=== PATIENT | female | born 1945 | race Caucasian/White ===

== ENCOUNTER → 2022-06-30 10:22 | Outpatient (BNVA) | payer OTHER, SELFPAY | PROVIDERS: PCP Family Medicine; Visit Provider Psychiatry & Neurology Neurology | DX: G20 Parkinson's disease (principal) ==

== ENCOUNTER → 2022-09-01 12:24 | Outpatient (BNVA) | payer OTHER, MEDICAID, SELFPAY | PROVIDERS: PCP Family Medicine; Visit Provider Psychiatry & Neurology Neurology | DX: Z13.89 Encounter for screening for other disorder (principal) ==

== ENCOUNTER → 2022-12-16 13:49 | Outpatient (BNVA) | payer OTHER, MEDICAID, SELFPAY | PROVIDERS: PCP Family Medicine; Visit Provider Psychiatry & Neurology Neurology ==

== ENCOUNTER 2023-01-26 16:07 | Outpatient (AMB) | payer OTHER, MEDICAID, SELFPAY ==
--- NOTE | 2023-01-26 16:08 | MHC.OFFVIS ---
Intake Vital Signs 01/26/23 16:11 Height 5 ft 2 in BP 144/70 H Blood Pressure Location Rt brachial Position Sitting Pulse 89 Pulse Source Pulse Oximeter Pulse Oximetry (%) 98 Oxygen Delivery Method Room Air Intake Visit Reasons: Urgent Follow up(per MD) Intake Note: Patient presents for urgent follow up. Patient states medication is not working Allergies atorvastatin [From Lipitor] Allergy (Severe, Verified 01/26/23 16:09) Vomiting clindamycin Allergy (Severe, Verified 01/26/23 16:09) Vomiting Sulfa (Sulfonamide Antibiotics) Allergy (Severe, Verified 01/26/23 16:09) Hives Medication List - Last Reconciled 01/26/23 by Lucina Jerry MD amantadine HCl ER (Gocovri) 1 cap qhs x's 1 week, then 2 caps qhs orally bedtime; 30 days azathioprine (Imuran) 50 mg PO DAILY carbidopa-levodopa 25-100 mg (Sinemet) 2 tabs PO QID 90 days mesalamine (Lialda) 2.4 grams PO DAILY rosuvastatin 5 mg PO DAILY spironolactone 50 mg PO DAILY HPI HPI Comments History of Present Illness Details 77y/o left handed female comes for urgent follow up of Parkinsons disease.she reports increase in tremors and feels she has no control over her hand movements- started 1 week ago.I decreased her sinemet 25/100 1.5 tabs qid and 2 tabs at bedtime .No OFF periods or freezing.she also sprained her back when she was trying to get in her sisters car . About 1 month ago she noticed tremors in her left hand, had difficulty with writing , mouth twitches, difficulty applying make up . she also reports leg jerks at night.she reports difficulty falling asleep, feels restless. she was started on Gocovri and feels better.she stopped pramipexole (not clear why) History-She was diagnosed with parkinsons disease in 2017 in [place]. She presented with right handed tremors at that time.she was started on carbidopa/levodopa and trialed on requip, rasagiline, rytary,neupro patch etc. she moved from [place] to [facility] 2 years ago . She denies any cognitive issues. She reports occasional weird dreams and she has cried out for help.she has 1-2 arousals a night to use the bathroom. she denies anxiety or depression.she is very motivated. she feels her speech is hoarse and softer. she denies drooling. Handwriting is OK . she has difficult with applying make up. she denies any problems with dressing or bathing. she walks OK .she reminds herself to swing her UE. she feels like her knees are weak. she reports constipation. No falls. Denies dizziness, dysphagia. she had hallucinations related to a new BP medication with antibiotic several months ago. she wakes up with jaw tremors that lasts for 1 hr. she also has some lip twitching which she does not like because its embarrassing and unpredictable. 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 Ulcerative colitis Surgical History H/O breast biopsy H/O colonoscopy History of tonsillectomy Hx of carpal tunnel repair Hx of section Status post repair of ligament of ankle Family History Sister Hypertension COPD (chronic obstructive pulmonary disease) Mother Diabetes CAD (coronary artery disease) Hyperlipidemia Father Hyperlipidemia Paternal Grandmother Breast cancer Social History Alcohol intake: current Patient Tobacco Use Status: Former Tobacco user Physical Exam Vital Signs: Last Vital Signs Pulse 89 01/26/23 16:11 BP 144/70 H 01/26/23 16:11 Pulse Ox 98 01/26/23 16:11 Oxygen Delivery Method Room Air 01/26/23 16:11 Const General: cooperative, healthy appearing and no acute distress Nutritional Appearance: average body habitus Orientation/consciousness: patient oriented x3 HEENT Other: restricted range of motion Head: Yes normal to inspection Neck Other: mild antecollis and restricted range of motion Neuro Other: Mild decreased blink and facial expression mild lower lip tremors, tongue tremors , slow tongue movements Voice- hoarse No rest tremors , lower lip tremors Fine Finger movements - mildly decreased deon R>L Alternating hand movements - decreased deon Hand movements - decreased deon Foot taps- decreased deon 2 cog wheel rigidity - Right UE gait - stooped, mild slowness and decreased arm swing L>R General: patient oriented x3 and no focal motor deficits Cranial nerves: Yes CN's II-XII intact bilaterally, Yes Bilaterally intact EOM present, Yes Normal facial strength present and Yes Midline tongue present Motor exam (neuro): 5/5 motor strength present throughout and Normal motor muscle tone present throughout Coordination: [id number] test normal Psych Appearance: grossly normal Affect: Anxious affect present Assessment & Plan Assessment & Plan (1) Parkinson's disease: Comment: with dyskinesias Code(s): G20 - Parkinson's disease (2) Sleep disorder: Comment: insomnia ? REM behavior disorder Code(s): G47.9 - Sleep disorder, unspecified Plan Carbidopa/levodopa 25/100 2 tabs qid 8am -12 noon 4 pm 8 pm Gocovri 137 mg 2 caps qhs I will trial her on clonazepam 0.5mg 1/2 tab qhs Medications: Changed From carbidopa-levodopa 25-100 mg (Sinemet) 8am,12 noon, 4pm, 8 pm 2 tabs PO QID 90 days 720 tabs 6RF To carbidopa-levodopa 25-100 mg (Sinemet) 1.5 tabs qid and 2 tabs qhs 2 tabs PO QID 90 days 720 tabs 6RF From carbidopa-levodopa 25-100 mg (Sinemet) 1.5 tabs qid and 2 tabs qhs 2 tabs PO QID 90 days 720 tabs 6RF To carbidopa-levodopa 25-100 mg (Sinemet) 2 tabs PO QID 720 tabs 6RF 90 days Coding Level of Care Code Est Pt Level 4 (42466) Diagnoses Parkinson's disease G20 Sleep disorder G47.9
[2023-01-26 16:11] VITALS: BP 144/70; PULSE 89; O2SAT 98
== END 2023-01-26 16:29 | disposition home or self-care (01) ==
PROVIDERS: PCP Family Medicine; Visit Provider Psychiatry & Neurology Neurology
DX: G20 Parkinson's disease (principal); G47.9 Sleep disorder, unspecified
CPT/HCPCS: 99214

== ENCOUNTER → 2023-01-26 16:07 | Outpatient (BNVA) | payer OTHER, MEDICAID, SELFPAY | PROVIDERS: PCP Family Medicine; Visit Provider Psychiatry & Neurology Neurology ==

== ENCOUNTER 2025-01-24 10:40 | Outpatient (AMB) | payer OTHER, MEDICAID, SELFPAY ==
--- NOTE | 2025-01-24 10:44 | A.OFFVIS_ITS ---
Vital Signs 01/24/25 10:46 Height 5 ft 2 in Weight 165 lb 4 oz BMI 30.2 BP 110/64 Blood Pressure Location Rt brachial Position Sitting Pulse 70 Pulse Source Pulse Oximeter Pulse Oximetry (%) 96 Oxygen Delivery Method Room Air Intake Visit Reasons: f/u appt - last seen on 2022 Intake Note: Patient presents follow up for Parkinson's Certified Hyperbaric Technologist Required: No Accompanied by: Self / Same As Patient Allergies atorvastatin (From Lipitor) Allergy (Severe, Verified 01/26/23 16:09) Vomiting clindamycin Allergy (Severe, Verified 01/26/23 16:09) Vomiting Sulfa (Sulfonamide Antibiotics) Allergy (Severe, Verified 01/26/23 16:09) Hives Medication List - Last Reconciled 01/24/25 by Lucina Jerry MD amantadine HCl ER (Gocovri) 1 cap qhs x's 1 week, then 2 caps qhs orally bedtime; 30 days azathioprine (Imuran) 50 mg PO DAILY azathioprine 50 mg PO DAILY carbidopa-levodopa 25-100 mg (Sinemet) 2 tabs PO QID 90 days cholecalciferol (vitamin D3) 25 mcg PO DAILY estradiol 1 mg PO DAILY losartan 25 mg PO DAILY mesalamine (Lialda) 2.4 grams PO DAILY mirabegron ER 25 mg PO DAILY primidone 50 mg PO BID propranolol 20 mg PO TID rosuvastatin 5 mg PO DAILY spironolactone 50 mg PO DAILY HPI Comments Details: 79y/o left handed female comes for follow up of tremors Parkinsons disease after 2 years .she was seeing the Movement Disorders clinic at [facility].But due to insurance change she is changing providers. she had skin biopsy there that was negative for parkinsons.she was trialed on propranalol and primidone by Dr. House , botox for facial muscles did not help. Memory- good Sleep- hypersomnia , no vivid dreams , abnormal leg jerks when supine. Voice- weaker she has some drooling has trouble with utensils Dressing , shower- Ok slow gait-slow , no falls No hallucinations History form 2022 visit- she reports increase in tremors and feels she has no control over her hand movements- started 1 week ago.I decreased her sinemet 25/100 1.5 tabs qid and 2 tabs at bedtime .No OFF periods or freezing.she also sprained her back when she was trying to get in her sisters car . About 1 month ago she noticed tremors in her left hand, had difficulty with writing , mouth twitches, difficulty applying make up . she also reports leg jerks at night.she reports difficulty falling asleep, feels restless. she was started on Gocovri and feels better.she stopped pramipexole (not clear why) She was diagnosed with parkinsons disease in 2017 in [place]. She presented with right handed tremors at that time.she was started on carbidopa/levodopa and trialed on requip, rasagiline, rytary,neupro patch etc. she moved from [place] to [facility] 2 years ago . She denies any cognitive issues. She reports occasional weird dreams and she has cried out for help.she has 1-2 arousals a night to use the bathroom. she denies anxiety or depression.she is very motivated. she feels her speech is hoarse and softer. she denies drooling. Handwriting is OK . she has difficult with applying make up. she denies any problems with dressing or bathing. she walks OK .she reminds herself to swing her UE. she feels like her knees are weak. she reports constipation. No falls. Denies dizziness, dysphagia. she had hallucinations related to a new BP medication with antibiotic several months ago. she wakes up with jaw tremors that lasts for 1 hr. she also has some lip twitching which she does not like because its embarrassing and unpredictable. 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 Ulcerative colitis HTN (hypertension) Surgical History Status post repair of ligament of ankle History of tonsillectomy H/O colonoscopy Hx of carpal tunnel repair Hx of section H/O breast biopsy Family History Sister Hypertension COPD (chronic obstructive pulmonary disease) Mother Diabetes CAD (coronary artery disease) Hyperlipidemia Father Hyperlipidemia Paternal Grandmother Breast cancer Social History Alcohol intake: current Patient Tobacco Use Status: Former Tobacco user Physical Exam Vital Signs: Last Vital Signs Pulse 70 01/24/25 10:46 BP 110/64 01/24/25 10:46 Pulse Ox 96 01/24/25 10:46 Oxygen Delivery Method Room Air 01/24/25 10:46 BMI result Body Mass Index 30.2 Const General: cooperative, healthy appearing and no acute distress Nutritional Appearance: average body habitus Orientation/consciousness: patient oriented x3 HEENT Other: restricted range of motion Head: Yes normal to inspection Neck Other: mild antecollis and restricted range of motion Neuro Other: Mild decreased blink and facial expression mild lower lip tremors, tongue tremors , slow tongue movements Voice- hoarse No rest tremors , lower lip tremors Fine Finger movements - moderately decreased deon R>L Alternating hand movements - decreased deon Hand movements - decreased deon Foot taps- decreased deon 2 cog wheel rigidity - Right UE gait - stooped, mild slowness andno arm swing on the right General: patient oriented x3 and no focal motor deficits Cranial nerves: Yes CN's II-XII intact bilaterally, Yes Bilaterally intact EOM present, Yes Normal facial strength present and Yes Midline tongue present Motor exam (neuro): 5/5 motor strength present throughout and Normal motor muscle tone present throughout Coordination: [id number] test normal Psych Appearance: grossly normal Affect: Anxious affect present Assessment & Plan Assessment & Plan (1) Parkinson's disease: Comment: with dyskinesias Code(s): G20 - Parkinson's disease Category: Medical Qualifiers: Dyskinesia presence: without dyskinesia Fluctuating manifestations: without fluctuating manifestations Qualified Code(s): G20.A1 - Parkinson's disease without dyskinesia, without mention of fluctuations (2) Sleep disorder: Comment: insomnia ? REM behavior disorder Code(s): G47.9 - Sleep disorder, unspecified Category: Medical (3) Essential and other specified forms of tremor: Code(s): G25.0 - Essential tremor; G25.2 - Other specified forms of tremor Category: Medical Plan Increase Carbidopa/levodopa 25/100 2 tabs qid 8am -12 noon 4 pm 8 pm primidone 50mg bid Propranolol 20mg tid Medications: Changed From carbidopa-levodopa 25-100 mg (Sinemet) 2 tabs PO QID 90 days 720 tabs 6RF To carbidopa-levodopa 25-100 mg (Sinemet) 1.5 tabs PO QID 90 days 540 tabs 6RF From carbidopa-levodopa 25-100 mg (Sinemet) 1.5 tabs PO QID 90 days 540 tabs 6RF To carbidopa-levodopa 25-100 mg (Sinemet) 2 tabs PO QID 720 tabs 6RF 90 days Discontinued clonazepam administer 30 minutes before bedtime Discontinued Reason: Patient no longer taking 0.25 mg (1/2 x 0.5 mg) PO BEDTIME 30 tabs 2RF clonazepam administer 30 minutes before bedtime Discontinued Reason: Patient no longer taking 0.25 mg (1/2 x 0.5 mg) PO BEDTIME 30 tabs 2RF Coding Level of Care Code Est Pt Level 4 (14130) Complex EM visit Add On G2211 Diagnoses Parkinson's disease without dyskinesia or fluctuating manifestations G20.A1 Dyskinesia presence: without dyskinesia Fluctuating manifestations: without fluctuating manifestations Sleep disorder G47.9 Essential and other specified forms of tremor G25.0; G25.2
[2025-01-24 10:46] VITALS: BP 110/64; PULSE 70; O2SAT 96; BMI 30.2
--- OUTSIDE RECORDS SUMMARY | 2025-01-24 11:20 | XMS_ITS | Encounter Summary ---
Author Organization [facility] Address [address] [place] [address] Care Team Providers Care Cloth Covered Helmet Puller Name Role Phone Rosario Palacio MD Primary Care Provider Encounter Details Date Type Department Care Team (Late st Contact Info) Description 04/06/2023 Scanned Document [facility] [place] [address] [facility] [address] [place] [phone] Cortney Kaur, PUTTY AND CAULKING SUPERVISOR [address] [facility] [address] [place] [address] Social History Tobacco Use Types Packs/Day Years Used Date Smoking Tobacco: Former Cigarettes Q uit: 06/20/1979 Smokeless Tobacco: Never Comments:quit at 36 y/o Alcohol Use Standard Drinks/Week Comments Not Currently 1 (1 standard drink = 0.6 oz pur e alcohol) occasional Comments No Sex and Gender Information Value Date Recorded Sex Assigned at Not on file Legal Sex Female 8:26 AM EST Gender Identity Not on file Sexual Orientation Not on file documented as of this encounter Plan of Treatment Not on file documented as of this encounter Visit Diagnoses Not on filedocumented in this encounter Care Teams Cloth Covered Helmet Puller Relationship Specialty Start Date End Date Rosario Palacio MD [address] [facility] [place] [address] PCP - General Family Medicine 03/10/23 documented as of this encounter
--- OUTSIDE RECORDS SUMMARY | 2025-01-24 11:20 | XMS_ITS ---
Author Name [facility] Organization Unknown History of Medication Use Medication Directions Dispensed Refills Start Date End Date Stat gabapentin (NEURONTIN) 100 MG capsule Take 1 capsule (100 mg total) by mouth 2 times a day. 12/29/2023 active primidone (MYSOLINE) 50 MG tablet Take 1/2 tablet nightly for a week and the increase to 1 full tablet nightly. 12/27/2023 active propranolol (INDERAL) 10 MG tablet Take 4 tablets (40 mg total) by mouth 2 (two) times a day. Take 2 tabs twice weekly for a week, then 3 tabs twice daily for a week, then 4 tabs twice daily 11/24/2023 11/24/2023 active propranolol (INDERAL) 10 MG tablet Take 2 tablets (20 mg total) by mouth 2 (two) times a day. To take 10mg twice daily for 1 week then increase to 20mg twice daily 11/16/2023 11/24/2023 active carbidopa-levodopa (SINEMET) 25-100 MG per tablet Take 1 tablet by mouth 3 (three) times a day. 08/24/2023 10/17/2023 active carbidopa-levodopa ER (RYTARY) 61.25-245 MG per capsule Take 1 capsule by mouth 3 (three) times a day. 07/13/2023 07/29/2023 active Gocovri 137 MG 24 hr capsule Take 2 capsules (274 mg total) by mouth nightly. 02/01/2023 03/10/2023 active Gocovri 137 MG 24 hr capsule 12/21/2022 02/01/2023 aborted amantadine (SYMMETREL) 100 MG capsule Take 1 capsule (100 mg total) by mouth 3 (three) times a day. 02/23/2022 02/01/2023 aborted carbidopa-levodopa (SINEMET) 25-100 MG per tablet Take 2 tablets by mouth 4 (four) times a day. May take an additional half tablet in the middle of the night if needed 12/07/2021 03/21/2023 aborted pramipexole (miraPEx) 0.125 MG tablet TAKE 2 TABLETS BY MOUTH 3 TIMES A DAY 12/07/2021 02/01/2023 aborted mesalamine (LIALDA) 1.[address] tablet Take 2 tablets (2.4 g total) by mouth 2 (two) times a day. 11/24/2023 active Allergies Allergen Reaction Severity Comment Documented Date Source Statu s SULFA ANTIBIOTICS UNKNOWN/PATIENT AND FAMILY UNABLE TO DEFINE 08/18/2020 [facility] active CLINDAMYCIN UNKNOWN/PATIENT AND FAMILY UNABLE TO DEFINE [facility] Problems Problem Status Onset Date Problem Type Date of Resoluti on Source Parkinson's disease with dyskinesia and fluctuating manifestations active 2023-11-24 [facility]Act [facility] Kinetic tremor active 2023-11-[address] [facility] Encounters Encounter Type Encounter Reason Primary Diagnosis Location Date Ambulatory Other specified forms of tremor Other specified forms of tremor [facility] 11/24/2023 Ambulatory Parkinson's disease without dyskinesia, without mention of fluctuations Parkinson's disease without dyskinesia, without mention of fluctuations [facility] 09/20/2023 Ambulatory Parkinson's disease with dyskinesia, with fluctuations Parkinson's disease with dyskinesia, with fluctuations [facility] 08/24/2023 Ambulatory Parkinson's disease with dyskinesia, with fluctuations Parkinson's disease with dyskinesia, with fluctuations [facility] 07/13/2023 Ambulatory Parkinson's disease Parkinson's disease [facility] 03/10/2023 Ambulatory Parkinson's disease Parkinson's disease [facility] 02/01/2023 Ambulatory Parkinson's disease [facility] 12/07/2021 Ambulatory Parkinson's disease [facility] 09/08/2021 Ambulatory Parkinson's disease [facility] 05/06/2021 Care Team Organization Name Specialty Phone Email Start Date End Da carissa [facility] ESTELLE HAMPTON Primary Care 03/10/2023 07/13/19 [facility] TONNY NAGEL Primary Care 12/07/2021 09/05/2024 [facility] SAM NAGEL Primary Care 05/06/2021 12/07/2021
--- OUTSIDE RECORDS SUMMARY | 2025-01-24 11:20 | XMS_ITS | Clinical Summary ---
Author Organization [facility] Address [address] [place] [address] Care Team Providers Care Hod Carrier Name Role Phone Rocky De Souza MD Primary Care Provider [phone] Allergies Active Allergy Reactions Criticality Noted Date Comments Clindamycin 03/30/2024 Sulfa Antibiotics 03/30/2024 Medications Medication Sig Dispensed Refills Start Date End Date Status azaTHIOprine (IMURAN) 50 MG tablet Take 3 tablets (150 mg total) by mouth daily. 0 01/11/2024 Active diazePAM (VALIUM) 2 MG tablet Take 1 tablet (2 mg total) by mouth 2 (two) times a day. 0 03/07/2024 Active gabapentin (NEURONTIN) 100 MG capsule Take 1 capsule (100 mg total) by mouth 2 (two) times a day. 0 12/29/2023 Active predniSONE (DELTASONE) tablet 10 mg TAKE 4 TABS DAILY X3 DAYS, 3 TABS DAILY X7 DAYS, 2 TABS DAILY X7 DAYS, 1 TAB DAILY GI FOLLOW UP 0 02/07/2024 Active spironolactone (ALDACTONE) tablet 25 mg Take 1 tablet (25 mg total) by mouth daily. 0 09/25/2021 Active rosuvastatin (CRESTOR) tablet 5 mg 0 09/20/2023 Active Active Problems Problem Noted Date Diagnosed Date Leucocytosis 03/30/2024 Thrombocytosis 03/30/2024 Ulcerative proctitis without complication 2023 Social History Tobacco Use Types Packs/Day Years Used Date Smoking Tobacco: Former Cigarettes Smokeless Tobacco: Never Tobacco Cessation:Counseling Given: Not Answered Alcohol Use Standard Drinks/Week Comments Not Currently 0 (1 standard drink = 0.6 oz pur e alcohol) Sex and Gender Information Value Date Recorded Sex Assigned at Female 03/12/2024 4:43 PM EDT Gender Identity Not on file Sexual Orientation Not on file Job Start Date Occupation Industry Not on file Not on file Not on file Last Filed Vital Signs Vital Sign Reading Time Taken Comments Blood Pressure 146/92 03/30/2024 1:04 PM EDT Pulse 97 03/30/2024 1:04 PM EDT Temperature 37.1 C (98.7 F) 03/30/2024 1:04 PM EDT Respiratory Rate - - Oxygen Saturation 97% 03/30/2024 1:04 PM EDT Inhaled Oxygen Concentration - - Weight 67 kg (147 lb 12.8 oz) 03/30/2024 1:04 PM EDT Height 157.5 cm (5' 2 ) 03/30/2024 1:04 PM EDT Body Mass Index 27.03 03/30/2024 1:04 PM EDT Plan of Treatment Health Maintenance Due Date Last Done Comments Hepatitis C Screening 1945 Depression Screening 1959 Preventative Health Evaluation 11/12/1965 Fall Risk Assessment 11/12/2012 Osteoporosis Screening (DEXA Scan) 11/12/2012 Hepatitis B Vaccines (3 of 3 - 19+ 3-dose series) 02/28/2013 09/28/2012, 08/28/2012 COVID-19 Vaccine (3 - Pfizer risk series) 09/09/2020 08/12/2020, 07/23/2020 Shingrix-Zoster Vaccine (2 o f 2) 06/04/2021 04/09/2021 RSV Adult > 60+ Yrs or (1 - 1-dose 75+ series) 11/12/2022 Influenza Vaccine (#1) 2025 , 03/19/2022, 03/25/2021 DTap / Tdap / Td (3 - Td or Tdap) 08/25/2031 08/24/2021, 12/09/2008 Pneumococcal Vaccine Completed 08/24/2021, 12/01/2017 RSV Ped < 20 months Aged Out No longe r eligible based on patient's age to complete this topic Care Teams Hod Carrier Relationship Specialty Start Date End Date Rocky De Souza MD PCP - General Rheumatology 03/30/24
--- OUTSIDE RECORDS SUMMARY | 2025-01-24 11:20 | XMS_ITS | Encounter Summary ---
Author Organization [facility] Address [address] [place] [address] Care Team Providers Care Insurance Claims Examiner Name Role Phone Jamie Lugo NP Primary Care Provider [phone] Encounter Details Date Type Department Care Team (Late st Contact Info) Description 07/20/2024 Lab Requisition [facility] - Main Lab [address] [place] [phone] Jamie uLgo NP [address] [address] Essential (primary) hypertension Social History Tobacco Use Types Packs/Day Years Used Date Smoking Tobacco: Former Cigarettes 1 16 0 06/20/1965 - 06/20/1981 Smokeless Tobacco: Never Alcohol Use Standard Drinks/Week Comments Not Currently 0 (1 standard drink = 0.6 oz pur e alcohol) Comments Unknown Sex and Gender Information Value Date Recorded Sex Assigned at Not on file Legal Sex Female 1:01 AM EST Gender Identity Not on file Sexual Orientation Not on file documented as of this encounter Plan of Treatment Upcoming Encounters Date Type Department Care Team (Late st Contact Info) Description 01/30/2025 11:00 AM EDT PACE Assessment [facility] Physical Therapy [address] [place] [address] Aris Chatterjee PT 01/30/2025 12:30 PM EDT PACE Home Care / PACE Home Visit Vianey [facility] [address] [place] [address] Chuyita Jerry 01/31/2025 11:00 AM EDT Office Visit [facility] [address] [place] [address] Karla Ghotra MD [address] [place] [address] 02/06/2025 12:30 PM EDT PACE Home Care / P[facility] Home Visit Vianey LEGER [facility] [address] [place] [phone] Chuyita Jerry 02/13/2025 12:30 PM EDT PACE Home Care / PACE Home Visit Vianey LEGER [facility] [address] [place] [phone] Chuyita Jerry 02/19/2025 1:40 PM EDT Clinical Support Vianey LEGER [place] [address] [place] [address] 02/20/2025 12:30 PM EDT PACE Home Care / PACE Home Visit Vianey LEGER [place] [facility] [address] [place] [phone] Chuyita Jerry 02/21/2025 9:40 AM EDT Clinical Support Vianey LEGER [place] [address] [place] [address] 02/21/2025 10:30 AM EDT Clinical Support Vianey LEGER [place] [address] [place] [address] 02/27/2025 12:30 PM EDT PACE Home Care / PACE Home Visit Vianey LEGER [facility] [address] [place] [address] Chuyita Jerry 03/06/2025 12:30 PM EDT PACE Home Care / PACE Home Visit Vianey LEGER [place] [facility] [address] [place] [address] Chuyita Jerry 03/13/2025 12:30 PM EDT PACE Home Care / PACE Home Visit Vianey LEGER [facility] [address] [facility] [place] [address] Chuyita Jerry 03/20/2025 12:30 PM EDT PACE Home Care / PACE Home Visit Vianey LEGER [facility] [address] [facility] [place] [address] Chuyita Jerry 04/02/2025 1:30 PM EDT Clinical Support Vianey LEGER [place] [address] [facility] [place] [address] 05/02/2025 1:30 PM EST Clinical Support Vianey Nelson [facility] [place] [address] 05/21/2025 3:00 PM EST Clinical Support Vianey LEGER [place] [address] [facility] [place] [address] 07/26/2025 12:45 PM EST Clinical Support Vianey LEGER [place] [address] [facility] [place] [address] documented as of this encounter Procedures Procedure Name Priority Date/Time Associated Diagnosis Comments CBC WITH AUTO DIFFERENTIAL Routine 07/20/2024 11:27 AM EST Essential (primary) hypertension CBC AND DIFFERENTIAL Routine 07/20/2024 11:27 AM EST Essential (primary) hypertension B-TYPE NATRIURETIC PEPTIDE Routine 07/20/2024 11:27 AM EST Essential (primary) hypertension COMPREHENSIVE METABOLIC PANEL Routine 07/20/2024 11:27 AM EST Essential (primary) hypertension documented in this encounter Results * (ABNORMAL) CBC auto differential (07/20/2024 11:27 AM EST) [facility] WBC 5.8 4.8 - 10.8 K/[facility] LAB HEMETOLOGY METHOD 07/20/2024 2:28 PM [facility] RBC 4.20 3.80 - 4.80 M/mcL LAB HEMETOLOGY METHOD 07/20/2024 2:28 PM [facility] Hemoglobin 13.8 11.5 - 16.0 g/dL LAB HEMETOLOGY METHOD 07/20/2024 2:28 PM [facility] Hematocrit 42.6 35.0 - 47.0 % LAB HEMETOLOGY METHOD 07/20/2024 2:28 PM [facility] MCV 100.5(H) 79.0 - 98.0 FL LAB HEMETOLOGY METHOD 07/20/2024 2:28 PM [facility] MCH 32.5(H) 27.0 - 32.0 pcg LAB HEMETOLOGY METHOD 07/20/2024 2:28 PM [facility] MCHC 32.4 32.0 - 37.0 g/dL LAB HEMETOLOGY METHOD 07/20/2024 2:28 PM [facility] RDW 14.8 11.0 - 15.0 % LAB HEMETOLOGY METHOD 07/20/2024 2:28 PM [facility] Platelets 288 130 - 400 K/mcL LAB HEMETOLOGY METHOD 07/20/2024 2:28 PM [facility] MPV 11.4(H) 7.0 - 11.0 FL LAB HEMETOLOGY METHOD 07/20/2024 2:28 PM [facility] NRBC 0.0 <1.0 % LAB HEMETOLOGY METHOD 07/20/2024 2:28 PM [facility] NRBC Absolute 0.00 <0.10 K/mcL LAB HEMETOLOGY METHOD 07/20/2024 2:28 PM [facility] Neutrophils Relative 57.8 % LAB HEMETOLOGY METHOD 07/20/2024 2:28 PM [facility] Lymphocytes Relative 19.9 % LAB HEMETOLOGY METHOD 07/20/2024 2:28 PM [facility] Monocytes Relative 15.8 % LAB HEMETOLOGY METHOD 07/20/2024 2:28 PM [facility] Eosinophils Relative 5.2 % LAB HEMETOLOGY METHOD 07/20/2024 2:28 PM [facility] Basophils Relative 1.0 % LAB HEMETOLOGY METHOD 07/20/2024 2:28 PM [facility] Immature Granulocytes Relative 0.3 % LAB HEMETOLOGY METHOD 07/20/2024 2:28 PM [facility] Neutrophils Absolute 3.33 1.50 - 7.00 K/mcL LAB HEMETOLOGY METHOD 07/20/2024 2:28 PM [facility] Lymphocytes Absolute 1.15 1.00 - 5.00 K/mcL LAB HEMETOLOGY METHOD 07/20/2024 2:28 PM [facility] Monocytes Absolute 0.91 0.20 - 1.00 K/mcL LAB HEMETOLOGY METHOD 07/20/2024 2:28 PM [facility] Eosinophils Absolute 0.30 0.00 - 0.50 K/mcL LAB HEMETOLOGY METHOD 07/20/2024 2:28 PM [facility] Basophils Absolute 0.06 0.00 - 0.20 K/mcL LAB HEMETOLOGY METHOD 07/20/2024 2:28 PM [facility] Immature Granulocytes Absolute 0.02 0.00 - 0.03 K/mcL LAB HEMETOLOGY METHOD 07/20/2024 2:28 PM [facility] Blood Venous blood specimen / Unknown 07/20/2024 11:27 AM EST 07/20/2024 1:56 PM EST Jamie Lugo INJECTION MOLDING OPERATOR LAB BLOOD ORDERABLES Final Resul t [facility] [address] [place] [address], * Comprehensive metabolic panel (07/20/2024 11:27 AM EST) Sodium 137 133 - 145 mmol/L LAB CHEMISTRY METHOD 07/20/2024 2:28 PM EST [facility] Potassium 4.3 3.5 - 5.5 mmol/L LAB CHEMISTRY METHOD 07/20/2024 2:28 PM [facility] Chloride 104 96 - 110 mmol/L LAB CHEMISTRY METHOD 07/20/2024 2:28 PM [facility] CO2 30 21 - 32 mmol/L LAB CHEMISTRY METHOD 07/20/2024 2:28 PM [facility] Anion Gap 3 3 - 11 LAB CHEMISTRY METHOD 07/20/2024 2:28 PM [facility] Glucose 94 70 - 100 mg/dL LAB CHEMISTRY METHOD 07/20/2024 2:28 PM [facility] BUN 14 5 - 25 mg/dL LAB CHEMISTRY METHOD 07/20/2024 2:28 PM [facility] Creatinine 0.71 0.50 - 1.10 mg/dL LAB CHEMISTRY METHOD 07/20/2024 2:28 PM [facility] eGFR 88 >=60 mL/min/1. 73m2 LAB CHEMISTRY METHOD 07/20/2024 2:28 PM [facility] Comment:Calculation based on the Chronic Kidney Disease Epidemiology Collaboration (CKD-EPI) equation refit without adjustment for race. BUN/Creatinine Ratio 19.7 LAB CHEMISTRY METHOD 07/20/2024 2:28 PM [facility] Calcium 9.7 8.5 - 10.5 mg/dL LAB CHEMISTRY METHOD 07/20/2024 2:28 PM [facility] AST (SGOT) 26 10 - 42 unit/L LAB CHEMISTRY METHOD 07/20/2024 2:28 PM [facility] ALT (SGPT) 20 10 - 60 unit/L LAB CHEMISTRY METHOD 07/20/2024 2:28 PM [facility] Alkaline Phosphatase 95 42 - 121 unit/L LAB CHEMISTRY METHOD 07/20/2024 2:28 PM [facility] Total Protein 7.3 6.0 - 8.0 g/dL LAB CHEMISTRY METHOD 07/20/2024 2:28 PM [facility] Albumin 3.7 3.2 - 5.0 g/dL LAB CHEMISTRY METHOD 07/20/2024 2:28 PM [facility] Total Bilirubin 0.5 0.0 - 1.4 mg/dL LAB CHEMISTRY METHOD 07/20/2024 2:28 PM [facility] Blood Venous blood specimen / Unknown 07/20/2024 11:27 AM EST 07/20/2024 1:56 PM EST us Jamie Lugo NP LAB BLOOD ORDERABLES Final Resul t [facility] [address] [place] [address], [place] [phone] * B-type natriuretic peptide (07/20/2024 11:27 AM EST) BNP 75 <=100 pcg/mL LAB CHEMISTRY METHOD 07/20/2024 2:49 PM EST [facility] Blood Venous blood specimen / Unknown 07/20/2024 11:27 AM EST 07/20/2024 1:56 PM EST us Jamie Lugo INJECTION MOLDING OPERATOR LAB BLOOD ORDERABLES Final Resul t [facility] [address] [place] [address], [place] [phone] documented in this encounter Visit Diagnoses Diagnosis Essential (primary) hypertension Unspecified essential hypertension documented in this encounter Care Teams Insurance Claims Examiner Relationship Specialty Start Date End Date Jamie Lugo NP [address] [place] [address] PCP - General 04/25/24 documented as of this encounter
== END 2025-01-24 11:40 | disposition home or self-care (01) ==
PROVIDERS: PCP Family Medicine; Visit Provider Psychiatry & Neurology Neurology
DX: G20.A1 Parkinson's disease without dyskinesia, without mention of fluctuations (principal); G47.9 Sleep disorder, unspecified; G25.0 Essential tremor; G25.2 Other specified forms of tremor
CPT/HCPCS: 99214; G2211

== ENCOUNTER → 2025-01-24 10:40 | Outpatient (BNVA) | payer OTHER, SELFPAY | PROVIDERS: PCP Family Medicine; Visit Provider Psychiatry & Neurology Neurology | DX: G20.A1 Parkinson's disease without dyskinesia, without mention of fluctuations (principal); G47.9 Sleep disorder, unspecified; G25.0 Essential tremor; G25.2 Other specified forms of tremor | CPT/HCPCS: 99212 ==

== ENCOUNTER 2025-03-26 10:31 | Outpatient (AMB) | payer OTHER, MEDICAID, SELFPAY ==
--- OUTSIDE RECORDS SUMMARY | 2024-04-12 11:03 | XMS_ITS | Encounter Summary ---
Author Organization [facility] Address [address] [place] [address] Care Team Providers Care Spraying Machine Operator Name Role Phone Rocky De Souza MD Primary Care Provider [phone] Encounter Details Date Type Department Care Team (Late st Contact Info) Description 04/12/2024 11:03 AM EDT Hospital Encounter TH HISTORIC ENCOUNTERS EASTERN CONVERSION ONLY Jamie Lugo, TENZIN [address] [facility] [address] [place] [address] Encounter for screening for respiratory tuberculosis Social History Tobacco Use Types Packs/Day Years Used Date Smoking Tobacco: Former Cigarettes 1 16 0 06/20/1965 - 06/20/1981 Smokeless Tobacco: Never Comments:Ex-smoker Farhad gill orts she has not smoked in 42 years. Alcohol Use Standard Drinks/Week Comments Not Currently 0 (1 standard drink = 0.6 oz pure alcohol) How often do you have a drink containing alcohol? Never Comments Unknown Sex and Gender Information Value Date Recorded Sex Assigned at Not on file Legal Sex Female 1:01 AM EST Gender Identity Not on file Sexual Orientation Not on file documented as of this encounter Functional Status * Geriatric Depression Scale (Short Version) Question Answer Date of Assessment Author Are you basically satisfied with your life? Yes 02/01/2025 12:30 PM EDT Dominique Finley Have you dropped many of you r activities and interests? Yes 02/01/2025 12:30 PM EDT Sudha Finley Do you feel that your life is empty? No 01/18 12:30 PM EDT Dominique Finley Do you often get bored? No 02/01/2025 12:30 PM EDT Dominique Finley Are you in good spirits most of the time? Yes 02/01/2025 12:30 PM EDT Dominique Finley Are you afraid that somethin g bad is going to happen to you? No 02/01/2025 12:30 PM EDT Gonzales Finley Do you feel happy most of the time? Yes 02/01 12:30 PM EDT Dominique Finley Do you often feel helpless? No 02/01/2025 12 :30 PM EDT Dominique Finley Do you prefer to stay at [facility], rather than going out and doing new things? No 02/01/2025 12:30 PM EDT Dominique Finley Do you feel you have more pr oblems with memory than most? No 02/01/2025 12:30 PM RODNEYT Dominique Finley Do you think it is wonderful to be alive now? Yes 02/01/2025 12:30 PM RODNEYT Dominique Finley Do you feel pretty worthless the way you are now? Yes 02/01/2025 12:30 PM Dominique Ruth Do you feel full of energy? No 02/01/2025 12 :30 PM Dominique Ruth Do you feel that your situat ion is hopeless? No 02/01/2025 12:30 PM EDT Dominique Finley Do you think that most peopl e are better off than you are? No 02/01/2025 12:30 PM RODNEYT Francisco Finley Geriatric Depression Scale ( Short Version) Total 3 02/01/2025 12:30 PM RODNEYT Dominique Finley documented as of this encounter Plan of Treatment Upcoming Encounters Date Type Department Care Team (Late st Contact Info) Description 03/27/2025 12:30 PM EDT [facility] Natalialinda ARSEN RUIZ [facility] [address] [place] [phone] Chuyita Jerry 03/29/2025 Lab V[facility]ey [facility]GER [facility] [address] [place] [phone] Jamie Lugo, TENZIN [address] [address] Urinary urgency; Urinary frequency 04/03/2025 12:30 PM EDT [facility] Home Visit Vianey LEGER MA [facility] [address] [place] [phone] Chuyita Jerry 04/10/2025 12:30 PM EDT [facility] Home Visit Vianey LEGER MA [facility] [address] [place] [phone] Chuyita Jerry 04/17/2025 2:30 PM EDT [facility] Home Visit Vianey LEGER MA [facility] [address] [place] [phone] Karen Myrick 04/24/2025 12:30 PM EST [facility] Home Visit Vianey LEGER [facility] [address] [place] [phone] Chuyita Jerry 05/01/2025 12:30 PM EST [facility] Home Visit Vianey LEGER [facility] [address] [place] [phone] Chuyita Jerry 05/02/2025 1:30 PM EST Clinical Support Vianey LEGER MA [address] [place] [phone] 05/08/2025 3:30 PM EST Ancillary Procedure [facility] [place] [facility] [address] [facility] [address] [place] [address] 05/09/2025 11:00 AM EST Clinical Support Vianey LEGER MA [address] [place] [phone] 05/15/2025 12:30 PM EST [facility] Home Visit Viaeny LEGER MA [facility] [address] [place] [phone] Chuyita Jerry 05/21/2025 3:00 PM EST Clinical Support Vianey LEGER MA [address] [place] [phone] 05/22/2025 12:30 PM EST [facility] Visit Vianey LEGER [facility] [address] [place] [phone] Chuyita Jerry 07/26/2025 12:45 PM EST Clinical Support Vianey LEGER MA [address] [place] [phone] 09/02/2025 1:00 PM EDT Clinical Support Vianey LEGER MA [address] [place] [phone] documented as of this encounter Procedures Procedure Name Priority Date/Time Associated Diagnosis Comments CHEST ROUTINE 2 VIEWS Routine 04/12/2024 12:20 PM EDT Encounter for screening for respiratory tuberculosis documented in this encounter Results * CHEST ROUTINE 2 VIEWS (04/12/2024 12:20 PM EDT) Anatomical Region Laterality Modality Radiographic Ania ging 04/12/2024 11:0 9 AM EDT Narrative 04/12/2024 12:20 PM EDT [facility] Diagnostic Imaging Department [address] [place] [address] [phone] Patient: FARHAD BURT D.O.B./Age/Sex: 1945 - 78 - F Unit#: [id number] Location/Status: SPDIGEN/REG CLI Mnemonic/Ordering Site: CHESTXR/SPDI Ordering Physician: JAMIE LUGO RN, CNP DR Chest Routine 2 Views - 04/12/24 - 1126 Report Status:Signed PA and lateral views of the chest dated 04/12/2024. HISTORY: CHEST XRAY TO RULE OUT TUBERCULOSIS. COMPARISON: 12/15/2023. FINDINGS: The lungs are slightly hyperinflated but clear. No pleural effusion, pulmonary edema, or pneumothorax. Normal heart size. Mild degenerative changes of the spine. IMPRESSION: Normal radiographic appearance of the chest for patient age. No findings to suggest pulmonary tuberculosis. Dictating Physician: SALO CHEATHAM MD Electronically Signed by: SALO CHEATHAM MD Dic Date/Time: 04/12/24 1219 Sign date/Time: 04/12/24 1220 Procedure Note Salo Cheatham MD - 04/21/2024 [facility] Diagnostic Imaging Department [address] [place], [place] [phone] Patient: CARMELFARHAD D.O.B./Age/Sex: 1945 - 78 - F Unit#: [id number] Location/Status: SPDIGEN/REG CLI Mnemonic/Ordering Site: CHESTXR/SPDI Ordering Physician: JAMIE LUGO RN COURT RECORDER DR Chest Routine 2 Views - 04/12/24 - 1126 Report Status:Signed PA and lateral views of the chest dated 04/12/2024. HISTORY: CHEST XRAY TO RULE OUT TUBERCULOSIS. COMPARISON: 12/15/2023. FINDINGS: The lungs are slightly hyperinflated but clear. No pleural effusion,pulmonary edema, or pneumothorax. Normal heart size. Mild degenerative changes ofthe spine. IMPRESSION: Normal radiographic appearance of the chest for patient age. No findingsto suggest pulmonary tuberculosis. Dictating Physician: SALO CHEATHAM MD Electronically Signed by: SALO CHEATHAM MD Dic Date/Time: 04/12/24 1219 Sign date/Time: 04/12/24 1220 Jamei Lugo CHEMIC MANGLER IMG XR PROCEDURES Final Result documented in this encounter Visit Diagnoses Diagnosis Encounter for screening for respiratory tuberculosis Urinary urgency Urgency of urination Urinary frequency documented in this encounter Care Teams Spraying Machine Operator Relationship Specialty Start Date End Date Rocky De Souza MD [address] [address] PCP - General 03/12/24 04/24/24 documented as of this encounter
--- OUTSIDE RECORDS SUMMARY | 2025-03-20 12:30 | XMS_ITS | Encounter Summary ---
Author Organization [facility] Address [address] [place] [address] Care Team Providers Care Classification Case Manager Name Role Phone Jamie Lguo NP Primary Care Provider [phone] Encounter Details Date Type Department Care Team (Late st Contact Info) Description 03/20/2025 12:30 PM EDT PACE Home Care / PACE Home Visit Vianey LEGER [facility] [address] [place] [phone] Chuyita Jerry Social History Tobacco Use Types Packs/Day Years Used Date Smoking Tobacco: Former Cigarettes 1 16 0 06/20/1965 - 06/20/1981 Smokeless Tobacco: Never Comments:Ex-smoker Myranda orts she has not smoked in 42 [...] [facility] [address] [place] [phone] Chuyita Jerry 03/29/2025 Lab [facility] [place] [facility] [address] [place] [address] Jamie Lugo, TENZIN [address] [facility] [address] [place] [address] Urinary urgency; Urinary frequency 04/03/2025 12:30 PM EDT PACE Home Care / PACE Home Visit Vianey LEGER [place] [facility] [address] [place] [address] Chuyita Jerry 04/10/2025 12:30 PM EDT PACE Home Care / PACE Home Visit Vianey LEGER [place] [facility] [address] [place] [phone] Chuyita Jerry 04/17/2025 2:30 PM EDT PACE Home Care / PACE Home Visit Vianey LEGER [facility] [address] [place] [phone] Karen Myrick 04/24/2025 12:30 PM EST PACE Home Care / PACE Home Visit Vianey LEGER [facility] [address] [place] [phone] Chuyita Jerry 05/01/2025 12:30 PM EST PACE Home Care / PACE Home Visit Vianey [facility]GER [facility] [address] [place] [phone] Chuyita Jerry 05/02/2025 1:30 PM EST Clinical Support [facility] [address] [place] [address] 05/08/2025 3:30 PM EST Ancillary Procedure [facility] [address] [facility] [address] [place] [address] 05/09/2025 11:00 AM EST Clinical Support Vianey LEGER [place] [address] [place] [address] 05/15/2025 12:30 PM EST PACE Home Care / PACE Home Visit Vianey LEGER [facility] [address] [place] [phone] Chuyita Jerry 05/21/2025 3:00 PM EST Clinical Support Vianey LEGER MA [address] [place] [phone] 05/22/2025 12:30 PM EST PACE Home Care / PACE Home Visit Vianey LEGER [facility] [address] [place] [phone] Chuyita Jerry 07/26/2025 12:45 PM EST Clinical Support Vianey LEGER MA [address] [place] [phone] 09/02/2025 1:00 PM EDT Clinical Support Vianey LEGER MA [address] [place] [phone] documented as of this encounter Visit Diagnoses Not on filedocumented in this encounter Care Teams Classification Case Manager Relationship Specialty Start Date End Date Jamie Lugo NP [address] [place] [address] PCP - General 04/25/24 documented as of this encounter
[2025-03-26 10:35] VITALS: BP 110/68; PULSE 68; O2SAT 98; BMI 30.7
--- NOTE | 2025-03-26 10:35 | A.OFFVIS_ITS ---
Vital Signs 03/26/25 10:35 Height 5 ft 2 in Weight 168 lb BMI 30.7 BP 110/68 Blood Pressure Location Rt brachial Position Sitting Pulse 68 Pulse Source Pulse Oximeter Pulse Oximetry (%) 98 Oxygen Delivery Method Room Air Intake Visit Reasons: 2 months F/U Intake Note: Follow up Parkinson's disease, tremor and insomnia Machine Sole Leveler Required: No Accompanied by: Self / Same As Patient Allergies atorvastatin (From Lipitor) Allergy (Severe, Verified 03/26/25 10:35) Vomiting clindamycin Allergy (Severe, Verified 03/26/25 10:35) Vomiting Sulfa (Sulfonamide Antibiotics) Allergy (Severe, Verified 03/26/25 10:35) Hives Medication List - Last Reconciled 03/26/25 by Lucina Jerry MD azathioprine (Imuran) 50 mg PO DAILY carbidopa-levodopa 25-100 mg (Sinemet) 2 tabs PO QID 90 days cholecalciferol (vitamin D3) 25 mcg PO DAILY estradiol 1 mg PO DAILY lactobacillus combo no.11 (Probiotic) 1 cap PO DAILY losartan 25 mg PO DAILY mesalamine (Lialda) 2.4 grams PO DAILY mirabegron ER 25 mg PO DAILY primidone 50 mg PO BID propranolol 20 mg PO BID propranolol 20 mg PO BID rosuvastatin 5 mg PO DAILY spironolactone 50 mg PO DAILY HPI Comments Details: 79y/o left handed female comes for follow up of tremors Parkinsons disease. during her last visit i increased her carbidopa/levodopa 25/100 to 2 tabs qid YASMANY scan in 2023 showed decreased uptake deon. she has a diagnosis of essential tremors Her main issue is her tremors and is worsening .she has noticed drop in blood pressure in the AM.when she wakes up in the middle of the night the tremors prevent her from fall back sleep. she denies any falls hallucinations. she has a feeling of passing in the [employer]. History form lastvisit-11/2024 - comes after 2 years .she was seeing the Movement Disorders clinic at [facility].But due to insurance change she is changing providers. she had skin biopsy there that was negative for parkinsons.she was trialed on propranalol and primidone by Dr. House , botox for facial muscles did not help. Memory- good Sleep- hypersomnia , no vivid dreams , abnormal leg jerks when supine. Voice- weaker she has some drooling has trouble with utensils Dressing , shower- Ok slow gait-slow , no falls No hallucinations History form 2022 visit- she reports increase in tremors and feels she has no control over her hand movements- started 1 week ago.I decreased her sinemet 25/100 1.5 tabs qid and 2 tabs at bedtime .No OFF periods or freezing.she also sprained her back when she was trying to get in her sisters car . About 1 month ago she noticed tremors in her left hand, had difficulty with writing , mouth twitches, difficulty applying make up . she also reports leg jerks at night.she reports difficulty falling asleep, feels restless. she was started on Gocovri and feels better.she stopped pramipexole (not clear why) She was diagnosed with parkinsons disease in 2017 in [place]. She presented with right handed tremors at that time.she was started on carbidopa/levodopa and trialed on requip, rasagiline, rytary,neupro patch etc. she moved from [place] to [facility] 2 years ago . She denies any cognitive issues. She reports occasional weird dreams and she has cried out for help.she has 1-2 arousals a night to use the bathroom. she denies anxiety or depression.she is very motivated. she feels her speech is hoarse and softer. she denies drooling. Handwriting is OK . she has difficult with applying make up. she denies any problems with dressing or bathing. she walks OK .she reminds herself to swing her UE. she feels like her knees are weak. she reports constipation. No falls. Denies dizziness, dysphagia. she had hallucinations related to a new BP medication with antibiotic several months ago. she wakes up with jaw tremors that lasts for 1 hr. she also has some lip twitching which she does not like because its embarrassing and unpredictable. 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 Ulcerative colitis HTN (hypertension) Surgical History Status post repair of ligament of ankle History of tonsillectomy H/O colonoscopy Hx of carpal tunnel repair Hx of section H/O breast biopsy Family History Sister Hypertension COPD (chronic obstructive pulmonary disease) Mother Diabetes CAD (coronary artery disease) Hyperlipidemia Father Hyperlipidemia Paternal Grandmother Breast cancer Social History Alcohol intake: current Patient Tobacco Use Status: Former Tobacco user Physical Exam Vital Signs: Last Vital Signs Pulse 68 03/26/25 10:35 BP 110/68 03/26/25 10:35 Pulse Ox 98 03/26/25 10:35 Oxygen Delivery Method Room Air 03/26/25 10:35 BMI result Body Mass Index 30.7 Const General: cooperative, healthy appearing and no acute distress Nutritional Appearance: average body habitus Orientation/consciousness: patient oriented x3 HEENT Other: restricted range of motion Head: Yes normal to inspection Neck Other: mild antecollis and restricted range of motion Neuro Other: Mild decreased blink and facial expression mild lower lip tremors, tongue tremors , slow tongue movements Voice- normal No rest tremors , lower lip tremors Fine Finger movements - mild decreased deon R>L Alternating hand movements - mild decreased deon Hand movements - decreased deon Foot taps- decreased deon - mild cog wheel rigidity - Right UE- very mild gait - stooped, mild slowness and no arm swing on the right General: patient oriented x3 and no focal motor deficits Cranial nerves: Yes CN's II-XII intact bilaterally, Yes Bilaterally intact EOM present, Yes Normal facial strength present and Yes Midline tongue present Motor exam (neuro): 5/5 motor strength present throughout and Normal motor muscle tone present throughout Coordination: zezzld-pa-wmeu test normal Psych Appearance: grossly normal Affect: Anxious affect present Assessment & Plan Assessment & Plan (1) Parkinson's disease: Comment: with dyskinesias Code(s): G20 - Parkinson's disease Category: Medical Qualifiers: Dyskinesia presence: without dyskinesia Fluctuating manifestations: without fluctuating manifestations Qualified Code(s): G20.A1 - Parkinson's disease without dyskinesia, without mention of fluctuations (2) Sleep disorder: Comment: insomnia ? REM behavior disorder Code(s): G47.9 - Sleep disorder, unspecified Category: Medical (3) Essential and other specified forms of tremor: Code(s): G25.0 - Essential tremor; G25.2 - Other specified forms of tremor Category: Medical Plan Carbidopa/levodopa 25/100 2 tabs qid 8am -12 noon 4 pm 8 pm primidone 50mg bid decrease Propranolol 20 mg qnoon qhs denies surgery Medications: New propranolol 20 mg PO BID 60 tabs 6RF Discontinued amantadine HCl ER (Gocovri) Discontinued Reason: Patient no longer taking 1 cap qhs x's 1 week, then 2 caps qhs orally bedtime; 30 days 60 caps 3RF Coding Level of Care Code Est Pt Level 4 (45564) Complex EM visit Add On G2211 Diagnoses Parkinson's disease without dyskinesia or fluctuating manifestations G20.A1 Dyskinesia presence: without dyskinesia Fluctuating manifestations: without fluctuating manifestations Sleep disorder G47.9 Essential and other specified forms of tremor G25.0; G25.2
--- OUTSIDE RECORDS SUMMARY | 2025-03-26 12:46 | XMS_ITS | Encounter Summary ---
Author Organization [facility] Address [address] [place] [address] Care Team Providers Care Patient Access Representative Name Role Phone Mamie Leggett NP Primary Care Provider + Rosario Palacio MD Primary Care Provider Encounter Details Date Type Department Care Team (Late st Contact Info) Description 03/09/2023 Scanned Document [facility] CH[employer] ASSEMBLER SCAN Occupational Therapy, Scan Social History Tobacco Use Types Packs/Day Years [...] on filedocumented in this encounter Care Teams Patient Access Representative Relationship Specialty Start Date End Date Mamie Leggett NP [address] [place] [address] PCP - General 08/14/20 03/09/23 Rosario Palacio MD [address] [place] [address] PCP - General Family Medicine 03/10/23 documented as of this encounter
--- OUTSIDE RECORDS SUMMARY | 2025-03-26 12:46 | XMS_ITS ---
Author Organization [facility] [address] [facility] Address [address] [place] [address] Phone Care Team Providers Care Blocker And Cutter Contact Lens Name Role Phone Jamie Lugo NP Primary Care Provider [phone] [facility] Status:Enrolled (Active) Start date:08/06/2024 Enrollment date:08/06/2024 Related program episode:Program of [facility]-Inclusive Care for the Elderly (Active) Case Team Name Relationship Phone Jamie Lugo PHOTOGRAPHY AND PRINTS CURATOR(Responsible Staff) Nurse F[place] pamela [phone] Continued Care and Services Coordination
--- OUTSIDE RECORDS SUMMARY | 2025-03-26 12:46 | XMS_ITS | Encounter Summary ---
Author Organization [facility] Address [address] [place] [address] Care Team Providers Care Minister Helper Name Role Phone Jamie Lugo NP Primary Care Provider [phone] Encounter Details Date Type Department Care Team (Late st Contact Info) Description 10/30/2024 Health Home Core [facility] [place] [facility] [address] [place] [address] Tania Marrero RN Social History Tobacco Use Types Packs/Day Years Used Date Smoking Tobacco: Former Cigarettes 1 16 0 06/20/1965 - 06/20/1981 Smokeless Tobacco: Never Comments:Ex-smoker Myranda gill orts she has not smoked in [...] Care / PACE Home Visit [facility] [address] [place] [address] Chuyita Jerry 03/29/2025 Lab [facility] [address] [place] [address] Jamie Lugo, TENZIN [address] [facility] [address] [place] [address] Urinary urgency; Urinary frequency 04/03/2025 12:30 PM EDT P[facility] Home Care / [facility] Home Visit V[facility] [place] [facility] [address] [place] [address] Chuyita Jerry 04/10/2025 12:30 PM EDT [facility] Home Care / [facility] Home Visit [facility] [place] [facility] [address] [place] [phone] Chuyita Jerry 04/17/2025 2:30 PM EDT P[facility] Home Care / [facility] Home Visit V[facility] [place] [facility] [address] [place] [address] Karen Myrick 04/24/2025 12:30 PM EST [facility] Home Care / [facility] Home Visit [facility] [place] [facility] [address] [place] [phone] Chuyita Jerry 05/01/2025 12:30 PM EST [facility] Home Care / [facility] Home Visit [facility] [place] [facility] [address] [place] [phone] Chuyita Jerry 05/02/2025 1:30 PM EST Clinical Support Vianey LEGER [place] [address] [place] [address] 05/08/2025 3:30 PM EST Ancillary Procedure [facility] [address] [address] 05/09/2025 11:00 AM EST Clinical Support Vianey LEGER [place] [address] [place] [address] 05/15/2025 12:30 PM EST [facility] Home Care / [facility] Home Visit [facility] [place] [facility] [address] [place] [phone] Chuyita Jerry 05/21/2025 3:00 PM EST Clinical Support Vianey LEGER MA [address] [place] [phone] 05/22/2025 12:30 PM EST [facility] Home [facility] / [facility] Home Visit [facility] [place] [facility] [address] [place] [phone] Chuyita Jerry 07/26/2025 12:45 PM EST Clinical Support Vianey LEGER [place] [address] [place] [phone] 09/02/2025 1:00 PM EDT Clinical Support Vianey LEGER [place] [address] [place] [phone] documented as of this encounter Visit Diagnoses Not on filedocumented in this encounter Care Teams Minister Helper Relationship Specialty Start Date End Date Jamie Lugo NP [address] [place] [phone] PCP - General 04/25/24 documented as of this encounter
--- OUTSIDE RECORDS SUMMARY | 2025-03-26 12:46 | XMS_ITS | Clinical Summary ---
Author Organization [facility] Address [address] [place] [address] Care Team Providers Care Imaging Science Professor Name Role Phone Rosario Palacio MD Primary Care Provider Allergies Active Allergy Reactions Criticality Noted Date Comments Clindamycin Unknown/Patient and Family Unable to Define Medium 08/18/2020 Sulfa Antibiotics Unknown/Patient and Family Unable to Define Medium 08/18/2020 Medications azaTHIOprine (IMURAN) 50 MG tablet Take 3 tablets (150 mg total) by mouth daily. Active rosuvastatin (CRESTOR) 5 MG tablet Take 1 tablet (5 mg total) by mouth daily. Active Multiple Vitamins-Minerals (CENTRUM SILVER ULTRA WOMENS PO) Take by mouth. Active spironolactone (ALDACTONE) 25 MG tablet Take 1 tablet (25 mg total) by mouth daily. 2 Active clonazePAM (KlonoPIN) 0.5 MG tabletIndications:P arkinson's disease with dyskinesia and fluctuating manifestations (HCC) TAKE 1/2 TABLET (0.25 MG TOTAL) BY MOUTH 30 MINUTES BEFORE BEDTIME 45 tablet 4 Active primidone (MYSOLINE) 50 MG tabletIndications:K inetic tremor Take 1/2 tablet nightly for a week and the increase to 1 full tablet nightly. 30 tablet 1 4 Active gabapentin (NEURONTIN) 100 MG capsuleIndications: Kinetic tremor Take 1 capsule (100 mg total) by mouth 2 times a day. 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 Resolved Problems Problem Noted Date Diagnosed Date Resolved Date Colitis 01/20/2021 09/01/2023 Parkinson's disease 09/25/2020 11/16/19 24 Family History Medical History Relation Name Comments Heart disease Father Heart disease Mother COPD Sister Relation Name Status Comments Father Mother Sister Alive Social History Tobacco Use Types Packs/Day Years Used Date Smoking Tobacco: Former Cigarettes Q uit: 06/20/1979 Smokeless Tobacco: Never Tobacco Cessation:Counseling Given: Not Answered Comments:quit at 36 y/o Alcohol Use Standard Drinks/Week Comments Not Currently 1 (1 standard drink = 0.6 oz pur e alcohol) occasional Comments No Sex and Gender Information Value Date Recorded Sex Assigned at Not on file Legal Sex Female 8:26 AM EST Gender Identity Not on file Sexual Orientation Not on file Last Filed Vital Signs Vital Sign Reading Time Taken Comments Blood Pressure 124/74 11/24/2023 10:46 AM EDT ma nual Pulse 75 11/24/2023 10:46 AM EDT Temperature - - Respiratory Rate 16 09/08/2021 11:02 AM EDT Oxygen Saturation - - Inhaled Oxygen Concentration - - Weight 61.2 kg (135 lb) 11/24/2023 10:46 AM EDT Height 157.5 cm (5' 2 ) 11/24/2023 10:46 AM EDT Body Mass Index 24.69 11/24/2023 10:46 AM EDT Plan of Treatment Health Maintenance Due Date Last Done Comments Advance Care Planning 1945 Hepatitis C Virus Screening 1945 COVID-19 Vaccine (#1) 11/12/1952 DTaP/Tdap/Td Vaccines (1 - Tdap) 11/12/1966 Pneumococcal Vaccines 50+ (1 of 2 - PCV) 11/12/1966 Zoster (Shingles) Vaccine (1 of 2) 11/12/1966 DXA Bone Density (Females,Ag es 65 and older) 11/12/2012 RSV Vaccine 60 years and old er and Patients (1 - 1-dose 75+ series) 11/12/2022 Influenza Vaccine 01/18/2025 Hepatitis B Vaccines Aged Out No long er eligible based on patient's age to complete this topic Care Teams Imaging Science Professor Relationship Specialty Start Date End Date Rosario Palacio MD [address] [place] [address] [place] [address] PCP - General Family Medicine 03/10/23
--- OUTSIDE RECORDS SUMMARY | 2025-03-26 12:46 | XMS_ITS | Encounter Summary ---
Author Organization [facility] Address [address] [place] [address] Care Team Providers Care Blood Donor Unit Assistant Name Role Phone Rosario Palacio MD Primary Care Provider Encounter Details Date Type Department Care Team (Late st Contact Info) Description 04/06/2023 Scanned Document [facility] Neurology [place] [address] [facility] [address] [place] [phone] Cortney Kaur, PAVILION CUTTER [address] [facility] [address] [place] [address] Social History Tobacco Use Types Packs/Day Years [...] on filedocumented in this encounter Care Teams Blood Donor Unit Assistant Relationship Specialty Start Date End Date Rosario Palacio MD [address] [facility] [place] [address] PCP - General Family Medicine 03/10/23 documented as of this encounter
--- OUTSIDE RECORDS SUMMARY | 2025-03-26 12:46 | XMS_ITS | Clinical Summary ---
Author Organization [facility] [address] [facility] Address [address] [place] [address] Phone Care Team Providers Care Barrel Maker Name Role Phone Jamie Nichols NP Primary Care Provider [phone] Allergies Active Allergy Reactions Criticality Noted Date Comments Atorvastatin Nausea And Vomiting 02/24/2021 Also fatigue. Clindamycin Hcl Diarrhea,Nausea And Vomiting 06/09/2011 Also ulcerative colitis flare. exacerbates par's colitis Sulfa (Sulfonamide Antibiotics) Hives,Rash 10/18/2005 Medications clonazePAM (KlonoPIN) 0.5 mg tablet TAKE 1/2 TABLET (0.25 MG TOTAL) BY MOUTH 30 MINUTES BEFORE BEDTIME 08/17/19 24 Active primidone (Mysoline) 50 mg tabletIndications :Parkinson's disease with dyskinesia and fluctuating manifestations (CMS/HCC V24, CMS/HCC V28),Essential tremor Take 1 tablet (50 mg total) by mouth 2 (two) times a day. 60 each 10/02/19 25 2025 Active mirabegron (Myrbetriq) 25 mg 24 hr tabletIndications :Overactive bladder Take 1 tablet (25 mg total) by mouth 1 (one) time each day. 30 each 10/23/19 25 2025 Active adalimumab-fkjp 40 mg/0.8 mL pen injectorIndicatio ns:Ulcerative proctitis with rectal bleeding (CMS/HCC V24, CMS/HCC V28) Inject 40 mg under the skin every 14 (fourteen) days. 40 mg subcutaneously every 2 weeks 16 mL 3 11/20/19 25 2024 Active azaTHIOprine (Imuran) 50 mg tabletIndications :Mixed hyperlipidemia,Pr imary hypertension,End- stage renal disease (CMS/HCC V24, CMS/HCC V28),Ulcerative proctitis with rectal bleeding (CMS/HCC V24, CMS/HCC V28),Parkinson's disease with dyskinesia, unspecified whether manifestations fluctuate (CMS/HCC V24, CMS/HCC V28),Superficial basal cell carcinoma,Age-rel ated nuclear cataract of both eyes Take 2 tablets (100 mg total) by mouth 1 (one) time each day. 60 each 02/08/20 25 2025 Active carbidopa-levodop a (SINEMET) 25-100 mg per tabletIndications :Mixed hyperlipidemia,Pr imary hypertension,End- stage renal disease (CMS/HCC V24, CMS/HCC V28),Ulcerative proctitis with rectal bleeding (CMS/HCC V24, CMS/HCC V28),Parkinson's disease with dyskinesia, unspecified whether manifestations fluctuate (CMS/HCC V24, CMS/HCC V28),Superficial basal cell carcinoma,Age-rel ated nuclear cataract of both eyes Take 2 tablets by mouth 4 (four) times a day. 240 each 02/08/20 25 2025 Active olmesartan-hydroC HLOROthiazide (BENICAR HCT) 20-12.5 mg per tabletIndications :Primary hypertension,Hype rtensive urgency Take 1 tablet by mouth 1 (one) time each day. 30 each 02/09/20 25 2025 Active calcium carbonate (OS-CHERY) 1,250 mg (500 mg elemental calcium) tabletIndications :Seasonal allergic rhinitis, unspecified trigger,Vitamin D deficiency,Mentor son's disease with dyskinesia, unspecified whether manifestations fluctuate (CMS/HCC V24, CMS/HCC V28),Osteopenia, unspecified location Take 1 tablet (1,250 mg total) by mouth 1 (one) time each day. separate by at least 2 hours from all other oral medications. 28 tablet 03/11/202025 Active cholecalciferol (Vitamin D3) 25 mcg (1,000 unit) tabletIndications :Seasonal allergic rhinitis, unspecified trigger,Vitamin D deficiency,Mentor son's disease with dyskinesia, unspecified whether manifestations fluctuate (CMS/HCC V24, CMS/HCC V28),Osteopenia, unspecified location Take 1 tablet (1,000 Units total) by mouth 1 (one) time each day. 30 each 03/11/202025 Active ipratropium (ATROVENT) 42 mcg (0.06 %) nasal sprayIndications: Seasonal allergic rhinitis, unspecified trigger,Vitamin D deficiency,Esha son's disease with dyskinesia, unspecified whether manifestations fluctuate (CMS/HCC V24, CMS/HCC V28),Osteopenia, unspecified location Administer 2 sprays into each nostril 3 (three) times a day if needed for rhinitis. 15 mL 1 03/11/202025 Active Lactobac 2-Bifido 1-S. therm 112.5 billion cell capsuleIndication s:Irritable bowel syndrome with both constipation and diarrhea Take 1 capsule by mouth 1 (one) time each day. 30 capsule 03/14/202025 Active cholecalciferol (Vitamin D3) 25 mcg (1,000 unit) tablet 1 tab by mouth daily 2024 Discontin ued(Reord er) gabapentin (NEURONTIN) 100 mg capsule Take 1 capsule (100 mg total) by mouth 2 (two) times a day. 12/29/192024 Discontin ued(Reord er) calcium carbonate (OS-CHERY) 1,250 mg (500 mg elemental calcium) tablet Take 1 tablet (1,250 mg total) by mouth 1 (one) time each day. 1 tab by mouth daily, separate by at least 2 hours from all other oral medications. 28 tablet 08/28/192024 Discontin ued(Reord er) imiquimod (ALDARA) 5 % creamIndications: Basal cell carcinoma (BCC) of skin of other part of face Apply 1 packet topically 5 (five) times a week. Apply PM Tuesday through Tuesday, left neck for 6 more weeks 24 packet 1 01/23/20 25 2024 gabapentin (NEURONTIN) 100 mg capsuleIndication s:Seasonal allergic rhinitis, unspecified trigger,Vitamin D deficiency,Mentor son's disease with dyskinesia, unspecified whether manifestations fluctuate (CMS/HCC V24, CMS/HCC V28),Osteopenia, unspecified location Take 1 capsule (100 mg total) by mouth 2 (two) times a day. 60 each 11 03/11/20 25 2024 Discontin ued(Enter ed in Error) Active Problems Problem Noted Date Diagnosed Date Age-related nuclear cataract of both eyes 2024 Assessment & Plan (02/07/2025 4:05 PM EDT): Ernesto states her vision has slowly become more blurry. She states she was told she has cataracts. Next Optometry appointment 04/02/2025. Plan: Order f/u with Ophthalmology, try to move Optometry appointment up. Ernesto stated understanding and agreed with plan. 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 Allergic rhinitis due to pollen 07/23/2024 Assessment & Plan (08/27/2024 2:22 PM EDT): Ernesto endorses runny nose and no affect with loratadine, will d/c medication. Recommended she get a air purifier/humidifier during the cold months. Use nasal saline rinse as discussed. Par stated understanding and agrees with plan. Vitamin D deficiency 07/23/2024 Assessment & Plan (08/27/2024 2:26 PM EDT): Chronic condition, stable on VIT D3 oral replacement, will continue current medications and monitor. Seborrheic dermatitis of scalp 07/23/2024 Assessment & Plan (08/27/2024 2:30 PM EDT): Ernesto states symptoms and existing plaques on her scalp have improved with Treatment reccommended by Dermatology: fluocinolone acetonide/shower cap (fluocinolone and shower cap) 0.01 % oil. Will continue current treatment and order Dermatology f/u. Multiple benign nevi 07/23/2024 Overview (07/23/2024): Benign, Nevi Assessment & Plan (08/27/2024 2:34 PM EDT): Dermatology: Scalp X 2 Seborrheic dermatitis. Continue current medications and f/u with Dermatology on 09/21/24. Skin tag 07/23/2024 Overview (07/23/2024): Skin Tag, Right Face Assessment & Plan (08/27/2024 2:35 PM EDT): Shave biopsy with cryotherapy removal successful, resolved. Hypertension 07/23/2024 Assessment & Plan (02/07/2025 3:50 PM EDT): Hypertensive urgency in clinic this encounter. BP initially 204/110, down to 182/92 on recheck. 0.5 mg Clonidine given in clinic this encounter. Labs: BNP, CBC, CMP sent to lab. Discussed with Par to continue home blood pressure monitoring, which she stopped doing roughly 2 months ago. This provider will review labs tomorrow and call to discuss findings and adjust Losartan 25 mg. Order TTE, CXR to r/o CHF. Par stated understanding and agreed with plan. Myelodysplastic syndrome (CMS/HCC V24, CMS/HCC V 28) 07/23/2024 Assessment & Plan (08/27/2024 2:38 PM EDT): Labs indicate Par does not meet the criteria for Myelodysplastic Syndrome, resolved. Essential tremor 07/23/2024 Assessment & Plan (08/27/2024 2:19 PM EDT): Par is s/p Neurology visit, will start Primidone 50 mg PO QHS after discussing the benefits vs potential complications Par agreed. Discussed with Par to alert ML for any new rash onset, double vision, ataxia, new or worsening depress and SI. Par stated understanding and agreed with plan. [place] 07/23/2024 Assessment & Plan (08/27/2024 2:36 PM EDT): Chronic, asymptomatic, will refer back to Podiatry and monitor. Asterixis 07/23/2024 Assessment & Plan (08/27/2024 2:36 PM EDT): No asterixis on exam this encounter, resolved. Seizure ([facility] V24, [facility] V28) 07/23/2024 Assessment & Plan (08/27/2024 2:20 PM EDT): No seizures reported, stable, will continue current medications and monitor. 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 Discussed monitor home blood pressures and to keep a diary and will have her return to clinic in two months or sooner if needed to review and discuss treatment changes if needed. Disorder of pigmentation 07/07/2021 Hemangioma of skin and subcutaneous tissue 07/07 Superficial basal cell carcinoma 07/07/2021 Assessment & Plan (02/07/2025 4:01 PM EDT): Skin irritation from SBCC Left post auricular area treatment with Aldara 5% cream. Next Dermatology appt., 02/21/2025. Plan: Continue current treatment and f/u with Dermatology. Par stated understanding and agreed with plan. Pale skin 07/07/2021 Osteopenia 02/24/2021 Parkinson's disease (CMS/[facility] V24, [facility] V28) 0 02/24/2021 Overview (05/07/2024): Follows with neurology [facility] CT Dr Gerardo Assessment & Plan (02/07/2025 3:58 PM EDT): Neurology: Increased Carbidopa/Levodopa 25/100 mg from 1 1/2 tablets PO QID to 2 tablets PO QID for increased tremors; Ordered. This provider will continue to monitor. Assessment & Plan (08/27/2024 3:00 PM EDT): Stable, currently managed on oral therapies with Carbidopa/levodopa, Propranolol, started Primidone this encounter and decreased frequency of azathioprine. Neurology f/u on 09/27/2023, will continue to monitor. Primary insomnia 02/24/2021 Assessment & Plan (08/27/2024 2:39 PM EDT): Par is sleeping well with 2-3 interruptions at night with nocturia. Sleep hygiene strategies reviewed with Par, will continue to monitor. Carpal tunnel syndrome, bilateral 06/30/2011 Overview (05/07/2024): Ilia Assessment & Plan (08/27/2024 2:14 PM EDT): Chronic condition, in remission, stable, will continue to monitor. Hyperlipidemia 12/30/2009 Assessment & Plan (08/27/2024 2:37 PM EDT): Repeating lipid panel this encounter, results pending, will continue to monitor. Ulcerative colitis ([facility] V24, [facility] V28) Overview (07/23/2024): Ulcerative Colitis, Left Side Follows with GI Dr Tejada Assessment & Plan (02/07/2025 3:51 PM EDT): GI: Decrease Azathioprine from 150 mg PO QD to 100 mg PO QD; ordered. Plan: Continue to monitor and Par will alert [facility] clinic of any abdominal pain, melena or mamie bleeding per rectum. Assessment & Plan (11/21/2024 2:56 PM EDT): Plan: 11/20/2024 she started Prednisone 20 mg tablet; Take 3 tabs (60mg) daily for 5 days, then take 2 tabs (40mg) daily for 2 days, then take 1 tab (20mg) daily for 2 days. 11/21/2024 Humira 40 mg SC administered while here in the clinic. Par is hemodynamically stable. IV start w/#20 PIV right hand. IVLR for one liter over 90 minutes. CBCD, BMP, UA sent stat to [facility] lab. GI F/U ordered, will CTM. Assessment & Plan (08/27/2024 2:25 PM EDT): Chronic condition, current stable on Humira, continue current treatment and f/u with GI. Call PCP if symptoms return. Par stated understanding and agreed with plan. Resolved Problems Problem Noted Date Diagnosed Date Resolved Date Urinary frequency 07/23/2024 08/27/2024 Urinary urgency 07/23/2024 08/27/2024 Other lack of coordination 07/23/2024 0 08/27/2024 Encounters Date Type Department Care Team Description 03/22/2025 Lab [facility] [address] [phone] Jamie Nichols, TENZIN Urinary urgency; Urinary frequency 03/20/2025 12:30 PM EDT [facility] / [facility] Home Visit [facility] [address] [place] [phone] Chuyita Jerry 03/15/2025 Lab [facility] [address] [phone] Jamie Nichols, TENZIN Urinary urgency; Urinary frequency 03/14/2025 11:30 AM EDT Clinical Support [facility] [address] [phone] Taylor Mathews LPN 03/13/2025 12:30 PM EDT [facility] / [facility] [place] [facility] [address] [place] [phone] Chuyita Jerry 03/08/2025 Lab [facility] [address] [phone] Jamie Nichols, TENZIN Urinary urgency; Urinary frequency 03/07/2025 3:00 PM EDT Treatment [facility] Physical Therapy [address] [place] [phone] Anni Vázquez, DUSTIN 03/06/2025 12:30 PM EDT [facility] / [facility] [place] [facility] [address] [place] [phone] Chuyita Jerry 03/06/2025 11:00 AM EDT P[facility] External Visit [facility] [address] [phone] Mixed hyperlipidemia; Primary hypertension; End-stage renal disease (CMS/HCC V24, CMS/HCC V28); Ulcerative proctitis with rectal bleeding (CMS/HCC V24, CMS/HCC V28); Parkinson's disease with dyskinesia, unspecified whether manifestations fluctuate (CMS/HCC V24, CMS/HCC V28); Superficial basal cell carcinoma; Age-related nuclear cataract of both eyes 03/01/2025 Lab [facility] [address] [phone] Jamie Nichols, TENZIN Urinary urgency; Urinary frequency 02/28/2025 11:30 AM EDT Clinical Support [facility] [address] [phone] Taylor Mathews LPN 02/28/2025 Plan of Care Documentation [facility] [address] [phone] 02/27/2025 12:30 PM EDT [facility] Home [facility] / [facility] [place] [facility] [address] [place] [address] Chuyita Jerry 02/26/2025 11:00 AM EDT [facility] External Visit [facility] [place] [address] [place] [address] Adult general medical examination 02/22/2025 9:00 AM EDT Treatment [facility] [address] [place] [address] Anni Vázquez, BEAD STRINGER 02/22/2025 [facility] [place] [facility] [address] [place] [phone] Jamie Nichols, TENZIN Urinary urgency; Urinary frequency 02/21/2025 1:30 PM EDT [facility] External Visit [facility] [place] [address] [place] [address] Healthcare maintenance 02/21/2025 12:00 PM EDT [facility] External [facility] [place] [address] [place] [phone] 02/20/2025 12:30 PM EDT [facility] Home [facility] / [facility] [place] [facility] [address] [place] [phone] Chuyita Jerry 02/19/2025 1:40 PM EDT [facility] External [place] [facility] [place] [address] [place] [phone] Healthcare maintenance 02/15/2025 8:30 AM EDT Treatment [facility] [place] [facility] [address] [place] [phone] Anni Vázquez, BEAD STRINGER 02/15/2025 [facility] [place] [facility] [address] [place] [phone] Jamie Nichols, TENZIN Urinary urgency; Urinary frequency 02/14/2025 12:00 PM EDT Clinical Support [facility] [place] [facility] [address] [place] [phone] Taylor Mathews LPN 02/13/2025 12:30 PM EDT [facility] Home [facility] / [facility] [place] [facility] [address] [place] [phone] Chuyita Jerry 02/11/2025 3:00 PM EDT Treatment [facility] [place] [facility] [address] [place] [phone] Anni Vázquez, BEAD STRINGER 02/08/2025 Lab [facility] [place] [facility] [address] [place] [phone] Jamie Nichols NP Urinary urgency; Urinary frequency 02/07/2025 2:00 PM EDT Treatment [facility] [address] [place] [phone] Anni Vázquez, BEAD STRINGER 02/07/2025 11:45 AM EDT Clinical Support [facility] [place] [address] [phone] Chantel Bowers RN Primary hypertension (Primary Dx) 02/07/2025 11:00 AM EDT Office Visit [facility] [place] [address] [phone] Jamie Nichols NP Mixed hyperlipidemia (Primary Dx); Primary hypertension; End-stage renal disease (CMS/HCC V24, CMS/HCC V28); Ulcerative proctitis with rectal bleeding (CMS/HCC V24, CMS/HCC V28); Parkinson's disease with dyskinesia, unspecified whether manifestations fluctuate (CMS/HCC V24, CMS/HCC V28); Superficial basal cell carcinoma; Age-related nuclear cataract of both eyes 02/06/2025 3:00 PM EDT Treatment [facility] [address] [place] [phone] Anni Vázquez, BEAD STRINGER 02/06/2025 12:30 PM EDT [facility] / [facility] [place] [facility] [address] [place] [phone] Chuyita Jerry 02/04/2025 3:30 PM EDT Treatment [facility] [place] [facility] [address] [place] [phone] Anni Vázquez, BEAD STRINGER 02/04/2025 9:45 AM EDT Clinical Support [address] [phone] Rachel Blake, ASHLEY 02/01/[address] [phone] Jamie Nichols NP Urinary urgency; Urinary frequency 01/31/2025 11:30 PM EDT Clinical Support [address] [phone] Taylor Mathews LPN 01/31/[address] [phone] Taylor Mathews LPN 01/30/2025 12:30 PM EDT [facility] Home Care / PACE Home Visit [facility] [address] [place] [phone] Chuyita Jerry 01/30/2025 11:00 AM EDT PACE Assessment [facility] Physical Therapy [address] [place] [phone] Aris Chatterjee, PT Parkinson's disease with dyskinesia, unspecified whether manifestations fluctuate (CMS/HCC V24, CMS/HCC V28) (Primary Dx) 01/29/2025 11:00 AM EDT PACE Assessment [facility] Occupational Therapy [address] [place] [phone] Shan Hua, OT Primary hypertension (Primary Dx) 01/25/[address] [phone] Jamie Nichols, TENZIN Urinary urgency; Urinary frequency 01/24/2025 11:00 AM EDT PACE External Visit [address] [phone] Parkinson's disease with dyskinesia and fluctuating manifestations (CMS/HCC V24, CMS/HCC V28) 01/23/2025 12:30 PM EDT [facility] / [facility] [place] [facility] [address] [place] [phone] Chuyita Jerry 01/18/2025 1:00 PM EDT PACE External Visit [facility] [address] [phone] 01/18/2025 10:30 AM EDT Clinical [facility] [address] [place] [phone] Rachel Blake, ASHLEY 01/18/2025 Lab [facility] [address] [place] [phone] Jamie Nichols NP Urinary urgency; Urinary frequency 01/17/2025 11:30 AM EDT Clinical Support [facility] [place] [facility] [address] [phone] Taylor Mathews LPN 01/11/2025 Lab [facility] [address] [place] [phone] Jamie Nichols NP Urinary urgency; Urinary frequency 01/09/2025 12:30 PM EDT [facility] Home [facility] / [facility] [place] [facility] [address] [place] [phone] Chuyita Jerry 01/04/2025 Lab [facility] [address] [place] [phone] Jamie Nichols NP Urinary urgency; Urinary frequency 01/03/2025 12:00 PM EDT Clinical Support [facility] [address] [phone] Taylor Mathews LPN 01/02/2025 12:30 PM EDT [facility] Home [facility] / [facility] [place] [facility] [address] [place] [phone] Chuyita Jerry 12/28/2024 1:10 PM EDT PACE External Visit [facility] [address] [place] [phone] 12/28/2024 Telephone [facility] [address] [place] [phone] Chantel Bowers RN 12/28/2024 Lab [facility] [address] [place] [phone] Jamie Nichols, TENZIN Urinary urgency; Urinary frequency 12/26/2024 12:30 PM EDT [facility] [address] [place] [phone] Chuyita Jerry from Last 3 Months Immunizations Immunization Administration Dates Next Due Hepatitis B (Pbycqza-T-Sweiw , Recombivax HB-Adult) 19yo and older 09/28/2012,08/28/2012 Influenza Quadravalent, MDCK , 0.5ml, preservative free (Flucelvax) 6mo and older 03/25/2021 Influenza trivalent, 0.5mL (Fluad) 65yo and olde r 03/17/2023,03/19/2022 Influenza, Unspecified 04/20/2024 Pneumococcal conjugate 13 va lent (Prevnar 13, PCV13) 2mo and older 12/01/2017 Pneumococcal polysaccharide 23 valent (Pneumovax 23) 2yo and older 08/24/2021 Tdap Tetanus diptheria acell ular pertussis (Boostrix; Adacel) 7yo and older 08/24/2021,12/09/2008 Zoster recombinant (Shingrix) 19yo and older Surgical History Surgery Date Site/Laterality Comments ANKLE FRACTURE SURGERY 01/18/2005 PROCEDURE: [place] OPEN TREATMENT MEDIAL MALLEOLUS FRACTURE; COMMENT: [place]; ORIF BREAST LUMPECTOMY PROCEDURE: ---- BREAST LUMP BIOPSY ----; COMMENT: [place] OTHER SURGICAL HISTORY 11/18/2005 PROCEDURE: MAMMOGRAM; COMMENT: neg OTHER SURGICAL HISTORY 12/19/2003 PROCEDURE: PAP SMEAR (1 SLIDE); COMMENT: Maximo; neg SECTION 01/18/1982 PROCEDURE: [place] DELIVERY ONLY; COMMENT: x 1 TONSILLECTOMY 1953 PROCEDURE: [place] TONSILLECTOMY PRIMARY/SECONDARY <AGE 12 CARPAL TUNNEL RELEASE 2011 Left PROCEDURE: HISTORICAL CARPAL TUNNEL REL COLONOSCOPY 11/09/2017 PROCEDURE: HISTORICAL COLONOSCOPY; COMMENT: L sided ulcerative colitis, colon polyp per note. No report. BREAST BIOPSY Left PROCEDURE: BX BREAST; PERC NEEDLE CORE W/IMAG GUID; COMMENT: neg SECTION PROCEDURE: SECTION ANKLE FRACTURE SURGERY PROCEDURE:ANKLE FRACTURE SURGERY;COMMENT:2003 Medical History Medical History Date Comments Pain in joint, lower leg 06/29/2005 DX:Pain in joint, lower leg; COMMENT: right Asthma DX:Asthma Other and unspecified hyperlipidemia 12/30/2009 DX:Other and unspecified hyperlipidemia Osteopenia 02/24/2021 DX:Osteopenia Primary insomnia 02/24/2021 DX:Primary inso mnia Parkinson's disease ([facility] V24, [facility] V28) 02/24/2021 DX:Parkinson's disease (HCC) Ulcerative colitis ([facility] V24, [facility] V28) 06/29/2005 DX:Ulcerative colitis (HCC); COMMENT: Mallory SCC (squamous cell carcinoma) 02/24/2021 DX :SCC (squamous cell carcinoma) Hypertension DX:Hypertension Parkinson disease ([facility] V 24, [facility] V28) DX:Parkinson disease (HCC) History of smoking Family History Medical History Relation Name Comments Heart attack Father Hyperlipidemia Father Hypertension, [place] at 70, at 73 from asbestos. Diabetes on paternal side. Other: Asbestos Father Coronary artery disease Mother Diabetes Mother Hypercholestero lemia, CAD Hyperlipidemia Mother Breast cancer Paternal Grandmother COPD Sister Hypertension Sister Relation Name Status Comments Daughter Alive Father Mother Paternal Grandmother Sister Alive Social History Tobacco Use Types Packs/Day Years Used Date Smoking Tobacco: Former Cigarettes 1 16 0 06/20/1965 - 06/20/1981 Smokeless Tobacco: Never Tobacco Cessation:Counseling Given: Not Answered Comments:Ex-smoker Farhad reports she has not smoked in 42 years. [...] on file Sexual Orientation Not on file Obstetrics History Last Filed Vital Signs Vital Sign Reading Time Taken Comments Blood Pressure 152/68 03/14/2025 1:00 PM EDT Pulse 68 03/14/2025 1:00 PM EDT Temperature 36.3 C (97.4 F) 02/07/2025 4:06 PM EDT Respiratory Rate 18 03/14/2025 1:00 PM EDT Oxygen Saturation 98% 02/08/2025 10:31 AM EDT Inhaled Oxygen Concentration - - Weight 75.8 kg (167 lb 3.2 oz) 02/07/2025 4:06 P M EDT Height 157.5 cm (5' 2 ) 02/07/2025 3:46 PM EDT Body Mass Index 30.58 02/07/2025 3:46 PM EDT Plan of Treatment Upcoming Encounters Date Type Department Care Team (Late st Contact Info) Description 03/27/2025 12:30 PM EDT [facility] Vianey LEGER [facility] [address] [place] [phone] Chuyita Jerry 03/29/2025 Lab V[facility]ey LEGER [facility] [address] [place] [phone] Jamie Nichols NP [address] [address] Urinary urgency; Urinary frequency 04/03/2025 12:30 PM EDT [facility] Vianey LEGER [facility] [address] [place] [phone] Chuyita Jerry 04/10/2025 12:30 PM EDT [facility] Visit Vianey LEGER MA [facility] [address] [place] [phone] Chuyita Jerry 04/17/2025 2:30 PM EDT [facility] Visit Vianey LEGER [facility] [address] [place] [phone] Karen Myrick 04/24/2025 12:30 PM EST [facility] Visit Vianey LEGER [facility] [address] [place] [phone] Chuyita Jerry 05/01/2025 12:30 PM EST [facility] Visit Vianey LEGER [facility] [address] [place] [phone] Chuyita Jerry 05/02/2025 1:30 PM EST Clinical Support Vianey LEGER MA [address] [place] [phone] 05/08/2025 3:30 PM EST Ancillary Procedure [facility] [address] [place] [phone] 05/09/2025 11:00 AM EST Clinical Support Vianey LEGER MA [address] [place] [phone] 05/15/2025 12:30 PM EST [facility] Visit Vianey LEGER [facility] [address] [place] [phone] Chuyita Jerry 05/21/2025 3:00 PM EST Clinical Support Vianey LEGER MA [address] [place] [phone] 05/22/2025 12:30 PM EST [facility] Visit Vianey LEGER [facility] [address] [place] [phone] Chuyita Jerry 07/26/2025 12:45 PM EST Clinical Support Vianey LEGER MA [address] [place] [phone] 09/02/2025 1:00 PM EDT Clinical Support Vianey LEGER MA [address] [place] [phone] Health Maintenance Due Date Last Done Comments Hepatitis B Vaccines (3 of 3 - 19+ 3-dose series) 02/28/2013 09/28/2012, 08/28/2012 COVID-19 Vaccine (2 - Pfizer risk series) 08/13/2020 08/12/2020, 07/23/2020 Zoster Vaccines (2 of 2) 06/04/2021 04/09/2021 Falls Risk Assessment 05/29/2022 Hepatitis C Screening 05/29/2022 Social Influencers of Health Screening 05/29/2022 Colorectal Cancer Screening: Colonoscopy 11/09/2022 11/09/2017 RSV Immunization Adult Patients (1 - 1-dose 75+ series) 11/12/2022 Depression Screening 06/20/2024 Influenza Vaccine (#1) 2025 , 03/22/2023, 03/17/2023, Additional history exists Hypertension/CHF/CAD Annual BMP Blood Test 02/07/2026 02/07/2025, 11/22/2024, 11/21/2024, Additional history exists Cholesterol Screening (Lipid Panel) 03/01/2029 03/01/2024, 08/16/2022 DTaP,Tdap,and Td Vaccines (3 - Td or Tdap) 08/25/2031 08/24/2021, 12/09/2008 Osteoporosis Screening (Bone Density Screening) 11/10/2031 11/09/2021 Pneumococcal Vaccine: 50+ Years Completed 08/24/2021, 12/01/2017 Breast Cancer Screening Discontinued 04/04/20, 11/24/2022, 11/09/2021 HIB Vaccines Aged Out No longer eligi ble based on patient's age to complete this topic HPV Vaccines Aged Out No longer eligi ble based on patient's age to complete this topic Hepatitis A Vaccines Aged Out No long er eligible based on patient's age to complete this topic IPV Vaccines Aged Out No longer eligi ble based on patient's age to complete this topic MMR Vaccines Aged Out No longer eligi ble based on patient's age to complete this topic Meningococcal ACWY Vaccine Aged Out N o longer eligible based on patient's age to complete this topic Meningococcal B Vaccine Aged Out No l onger eligible based on patient's age to complete this topic RSV Immunization Patients Under 20 months Aged Out No longer eligible based on patient's age to complete this topic Varicella Vaccines Aged Out No longer eligible based on patient's age to complete this topic Procedures Procedure Name Priority Date/Time Associated Diagnosis Comments URINALYSIS WITH REFLEX MICROSCOPIC AND CULTURE Routine 02/14/2025 2:00 PM EDT Recurrent UTI CULTURE URINE Routine 02/14/2025 2:00 PM EDT Recurrent UTI B-TYPE NATRIURETIC PEPTIDE Routine 02/07/2025 1:48 PM EDT Mixed hyperlipidemia Primary hypertension End-stage renal disease (CMS/HCC V24, CMS/HCC V28) COMPREHENSIVE METABOLIC PANEL Routine 02/07/2025 1:48 PM EDT Mixed hyperlipidemia Primary hypertension End-stage renal disease (CMS/HCC V24, CMS/HCC V28) THYROID STIMULATING HORMONE Routine 02/07/2025 1:48 PM EDT Mixed hyperlipidemia Primary hypertension End-stage renal disease (CMS/HCC V24, CMS/HCC V28) CBC WITH AUTO DIFFERENTIAL Routine 02/07/2025 1:48 PM EDT Mixed hyperlipidemia Primary hypertension End-stage renal disease (CMS/HCC V24, CMS/HCC V28) CBC AND DIFFERENTIAL Routine 02/07/2025 1:48 PM EDT Mixed hyperlipidemia Primary hypertension End-stage renal disease (CMS/HCC V24, CMS/HCC V28) MARTHA SCREENING DIGITAL Routine 04/04/2024 8:09 AM EDT Encounter for screening mammogram for malignant neoplasm of breast LIPID PANEL Routine 03/01/2024 DXA BONE DENSITY STUDY 1+ SITS AXIAL SKEL Routine 11/09/2021 1:56 PM EDT Encounter for screening for osteoporosis Vitamin D deficiency, unspecified HM COLONOSCOPY Routine 11/09/2017 from Last 3 Months or Most Recently Relevant to Health Maintenance Results * (ABNORMAL) Urinalysis with reflex microscopic and culture (02/14/2025 2:00 PM EDT) Specific [place] Urine 1.018 1.003 - 1.030 LAB URINALYSIS - AUTOMATED METHOD 02/14/2025 6:22 PM [facility] pH, Urine 6.5 5.0 - 8.0 pH LAB URINALYSIS - AUTOMATED METHOD 02/14/2025 6:22 PM [facility] Leukocytes, Urine Trace(A) Negative LAB URINALYSIS - AUTOMATED METHOD 02/14/2025 6:22 PM [facility] Nitrite, Urine Negative Negative LAB URINALYSIS - AUTOMATED METHOD 02/14/2025 6:22 PM [facility] Protein, Urine Negative <=Trace mg/dL LAB URINALYSIS - AUTOMATED METHOD 02/14/2025 6:22 PM [facility] Glucose, Urine Negative Negative mg/dL LAB URINALYSIS - AUTOMATED METHOD 02/14/2025 6:22 PM [facility] Ketones, Urine Trace(A) Negative mg/dL LAB URINALYSIS - AUTOMATED METHOD 02/14/2025 6:22 PM [facility] Urobilinogen, Urine 0.2 0.2 - 1.0 mg/dL LAB URINALYSIS - AUTOMATED METHOD 02/14/2025 6:22 PM [facility] Bilirubin, Urine Negative Negative LAB URINALYSIS - AUTOMATED METHOD 02/14/2025 6:22 PM [facility] Blood, Urine Negative Negative LAB URINALYSIS - AUTOMATED METHOD 02/14/2025 6:22 PM [facility] RBC, Urine 2.0 0 - 4 /HPF LAB URINALYSIS - AUTOMATED METHOD 02/14/2025 6:22 PM [facility] WBC, Urine 1.7 0 - 4 /HPF LAB URINALYSIS - AUTOMATED METHOD 02/14/2025 6:22 PM [facility] Squamous Epithelial, Urine 42 0 - 60 /LPF LAB URINALYSIS - AUTOMATED METHOD 02/14/2025 6:22 PM EDT [facility] Bacteria, Urine Negative Negative /HPF LAB URINALYSIS - AUTOMATED METHOD 02/14/2025 6:22 PM EDT [facility] Hyaline Casts, Urine 0.0 0 - 3 /LPF LAB URINALYSIS - AUTOMATED METHOD 02/14/2025 6:22 PM EDT [facility] Urine Urine specimen obtained by clean catch procedure / Unknown Non-blood Collection / Unknown 02/14/2025 2:00 PM EDT 02/14/2025 2:00 PM EDT us Jamie Nichols NP LAB URINE ORDERABLES Final Resul t Performing Organization Address City/[facility]/ZIP Co de Phone Number [facility] [address] [place] [address], [place] [phone] * Culture urine (02/14/2025 2:00 PM EDT) Pathologist [facility] Culture, Urine 10,000-49,000 CFU/mL Mixed bacterial morphotypes present suggestive of possible contamination during collection. Suggest appropriate recollection if clinically indicated. 02/15/2025 12:18 PM EDT [facility] Urine Urine specimen obtained by clean catch procedure / Unknown Non-blood Collection / Unknown 02/14/2025 2:00 PM EDT 02/14/2025 6:22 PM EDT us Jamie Nichols NP LAB MICROBIOLOGY - GENERAL ORDER [place] Final Result Performing Organization Address City/[facility]/ZIP Co de Phone Number [facility] [address] [place] [address], [place] [phone] * CBC auto differential (02/07/2025 1:48 PM EDT) WBC 5.1 4.8 - 10.8 K/[facility] LAB HEMETOLOGY METHOD 02/07/2025 5:48 PM EDT [facility] RBC 4.00 3.80 - 4.80 M/mcL LAB HEMETOLOGY METHOD 02/07/2025 5:48 PM EDT [facility] Hemoglobin 12.7 11.5 - 16.0 g/dL LAB HEMETOLOGY METHOD 02/07/2025 5:48 PM EDT [facility] Hematocrit 39.3 35.0 - 47.0 % LAB HEMETOLOGY METHOD 02/07/2025 5:48 PM EDT [facility] MCV 97.8 79.0 - 98.0 FL LAB HEMETOLOGY METHOD 02/07/2025 5:48 PM EDT [facility] MCH 31.6 27.0 - 32.0 pcg LAB HEMETOLOGY METHOD 02/07/2025 5:48 PM EDT [facility] MCHC 32.3 32.0 - 37.0 g/dL LAB HEMETOLOGY METHOD 02/07/2025 5:48 PM EDT [facility] RDW 14.2 11.0 - 15.0 % LAB HEMETOLOGY METHOD 02/07/2025 5:48 PM EDT [facility] Platelets 351 130 - 400 K/mcL LAB HEMETOLOGY METHOD 02/07/2025 5:48 PM EDT [facility] MPV 10.5 7.0 - 11.0 FL LAB HEMETOLOGY METHOD 02/07/2025 5:48 PM EDT [facility] NRBC 0.0 <1.0 % LAB HEMETOLOGY METHOD 02/07/2025 5:48 PM EDT [facility] NRBC Absolute 0.00 <0.10 K/mcL LAB HEMETOLOGY METHOD 02/07/2025 5:48 PM EDT [facility] Neutrophils Relative 47.4 % LAB HEMETOLOGY METHOD 02/07/2025 5:48 PM EDT [facility] Lymphocytes Relative 30.6 % LAB HEMETOLOGY METHOD 02/07/2025 5:48 PM EDT [facility] Monocytes Relative 15.9 % LAB HEMETOLOGY METHOD 02/07/2025 5:48 PM EDT [facility] Eosinophils Relative 5.1 % LAB HEMETOLOGY METHOD 02/07/2025 5:48 PM EDT [facility] Basophils Relative 0.6 % LAB HEMETOLOGY METHOD 02/07/2025 5:48 PM EDT [facility] Immature Granulocytes Relative 0.4 % LAB HEMETOLOGY METHOD 02/07/2025 5:48 PM EDT [facility] Neutrophils Absolute 2.41 1.50 - 7.00 K/mcL LAB HEMETOLOGY METHOD 02/07/2025 5:48 PM EDT [facility] Lymphocytes Absolute 1.56 1.00 - 5.00 K/mcL LAB HEMETOLOGY METHOD 02/07/2025 5:48 PM EDT [facility] Monocytes Absolute 0.81 0.20 - 1.00 K/mcL LAB HEMETOLOGY METHOD 02/07/2025 5:48 PM EDT [facility] Eosinophils Absolute 0.26 0.00 - 0.50 K/mcL LAB HEMETOLOGY METHOD 02/07/2025 5:48 PM EDT [facility] Basophils Absolute 0.03 0.00 - 0.20 K/mcL LAB HEMETOLOGY METHOD 02/07/2025 5:48 PM EDT [facility] Immature Granulocytes Absolute 0.02 0.00 - 0.03 K/mcL LAB HEMETOLOGY METHOD 02/07/2025 5:48 PM EDT [facility] Blood Venous blood specimen / Unknown Venipuncture / Unknown 02/07/2025 1:48 PM EDT 02/07/2025 1:48 PM EDT us Jamie Nichols NP LAB BLOOD ORDERABLES Final Resul t [facility] [address] [place] [address], * Thyroid stimulating hormone (02/07/2025 1:48 PM EDT) [facility] TSH 3.64 0.40 - 4.00 mcIU/mL LAB CHEMISTRY METHOD 02/07/2025 7:52 PM EDT [facility] Blood Venous blood specimen / Unknown Venipuncture / Unknown 02/07/2025 1:48 PM EDT 02/07/2025 1:48 PM EDT us Jamie Nichols NP LAB BLOOD ORDERABLES Final Resul t Performing Organization Address [facility] de Phone Number [facility] [address] [place] [address], * B-type natriuretic peptide (02/07/2025 1:48 PM EDT) [facility] BNP 68 <=100 pcg/mL LAB CHEMISTRY METHOD 02/07/2025 6:11 PM EDT [facility] Blood Venous blood specimen / Unknown Venipuncture / Unknown 02/07/2025 1:48 PM EDT 02/07/2025 1:48 PM EDT us Jamie Nichols NP LAB BLOOD ORDERABLES Final Resul t Performing Organization Address [facility]/ZIP Co de Phone Number [facility] [address] [place] [address], [place] [phone] * (ABNORMAL) Comprehensive metabolic panel (02/07/2025 1:48 PM EDT) [facility] Sodium 137 133 - 145 mmol/L LAB CHEMISTRY METHOD 02/07/2025 6:16 PM EDT [facility] Potassium 4.4 3.5 - 5.5 mmol/L LAB CHEMISTRY METHOD 02/07/2025 6:16 PM [facility] Chloride 101 96 - 110 mmol/L LAB CHEMISTRY METHOD 02/07/2025 6:16 PM [facility] CO2 31 21 - 32 mmol/L LAB CHEMISTRY METHOD 02/07/2025 6:16 PM [facility] Anion Gap 5 3 - 11 LAB CHEMISTRY METHOD 02/07/2025 6:16 PM [facility] Glucose 105(H) 70 - 100 mg/dL LAB CHEMISTRY METHOD 02/07/2025 6:16 PM [facility] BUN 17 5 - 25 mg/dL LAB CHEMISTRY METHOD 02/07/2025 6:16 PM [facility] Creatinine 0.85 0.50 - 1.10 mg/dL LAB CHEMISTRY METHOD 02/07/2025 6:16 PM [facility] eGFR 71 >=60 mL/min/1. 73m2 LAB CHEMISTRY METHOD 02/07/2025 6:16 PM [facility] Comment:Calculation based on the Chronic Kidney Disease Epidemiology Collaboration (CKD-EPI) equation refit without adjustment for race. BUN/Creatinine Ratio 20.0 LAB CHEMISTRY METHOD 02/07/2025 6:16 PM [facility] Calcium 9.4 8.5 - 10.5 mg/dL LAB CHEMISTRY METHOD 02/07/2025 6:16 PM [facility] AST (SGOT) 31 10 - 42 unit/L LAB CHEMISTRY METHOD 02/07/2025 6:16 PM [facility] ALT (SGPT) 25 10 - 60 unit/L LAB CHEMISTRY METHOD 02/07/2025 6:16 PM [facility] Alkaline Phosphatase 98 42 - 121 unit/L LAB CHEMISTRY METHOD 02/07/2025 6:16 PM [facility] Total Protein 7.7 6.0 - 8.0 g/dL LAB CHEMISTRY METHOD 02/07/2025 6:16 PM EDT [facility] Albumin 3.9 3.2 - 5.0 g/dL LAB CHEMISTRY METHOD 02/07/2025 6:16 PM EDT [facility] Total Bilirubin 0.3 0.0 - 1.4 mg/dL LAB CHEMISTRY METHOD 02/07/2025 6:16 PM EDT [facility] Blood Venous blood specimen / Unknown Venipuncture / Unknown 02/07/2025 1:48 PM EDT 02/07/2025 1:48 PM EDT us Jamie Nichols CABLE WORKER HELPER LAB BLOOD ORDERABLES Final Resul t [facility] [address] [place] [address], * MARTHA SCREENING DIGITAL (04/04/2024 8:09 AM EDT) Anatomical Region Laterality Modality Mammography 04/03/2024 11:0 0 AM EDT Narrative 04/04/2024 8:09 AM EDT [facility] Diagnostic Imaging Department [address] [place] [address] Patient: FARHAD BURTO.B./Age/Sex: 1945 - 78 - F Unit#: [id number] Location/Status: SPDIMAM/REG CLI Mnemonic/Ordering Site: DIGSC/SPMAM Ordering Physician: JAMIE NICHOLS RN, CNP [facility] Screening Digital - 04/03/24 - 1124 Report Status:Signed EXAM: [facility] Screening Digital EXAM DATE AND TIME: 04/03/2024 11:24 AM HISTORY: Screening. Previous breast biopsy, pathology benign. COMPARISON: 11/24/22, 11/09/21, 12/08/18 ([facility], [place], [place]) TECHNIQUE: Bilateral digital breast tomosynthesis was performed in the CC and MLO projections. Computer aided detection with Influx 3D 3.1 was employed. TISSUE DENSITY: b. There are scattered areas of fibroglandular density. FINDINGS: No suspicious masses, grouped microcalcifications, or areas of architectural distortion are seen. Few coarse, benign calcifications are again seen. The skin and vascularity are unremarkable. IMPRESSION: Stable mammographic appearance of the breasts. No evidence of malignancy is seen. A negative mammogram in the presence of a clinically suspicious palpable abnormality does not preclude the possibility of malignancy or alter the indications for biopsy. BI-RADS: Category 2: Benign RECOMMENDATION(S): 1: Routine screening mammogram BILATERAL in 1 year. [facility] [address] [place] [address] Dictating Physician: FUNMILAYO LINDSEY MD Electronically Signed by: FUNMILAYO LINDSEY MD Dic Date/Time: 04/04/24807 Sign date/Time: 04/04/24808 Procedure Note Funmilayo Lindsey MD - 04/17/2024 [facility] Diagnostic Imaging Department [address] [place] [address] Patient: FARHAD BURT/Age/Sex: 1945 - 78 - F Unit#: [id number] Location/Status: SPDIMAM/REG CLI Mnemonic/Ordering Site: [facility] Ordering Physician: JAMIE NICHOLS RN TRAFFIC ENUMERATOR [facility] Screening Digital - 04/03/24 - 1124 Report Status:Signed EXAM: [facility] Screening Digital EXAM DATE AND TIME: 04/03/2024 11:24 AM HISTORY: Screening. Previous breast biopsy, pathology benign. COMPARISON: 11/24/22, 11/09/21, 12/08/18 ([facility], [place], [place]) TECHNIQUE: Bilateral digital breast tomosynthesis was performed in the CCand MLO projections. Computer aided detection with Influx 3D 3.1was employed. TISSUE DENSITY: b. There are scattered areas of fibroglandular density. FINDINGS: No suspicious masses, grouped microcalcifications, or areas ofarchitectural distortion are seen. Few coarse, benign calcifications are again seen. Theskin and vascularity are unremarkable. IMPRESSION: Stable mammographic appearance of the breasts. No evidence of malignancyis seen. A negative mammogram in the presence of a clinically suspicious palpable abnormality does not preclude the possibility of malignancy or alter the indications for biopsy. BI-RADS: Category 2: Benign RECOMMENDATION(S): 1: Routine screening mammogram BILATERAL in 1 year. Mammogram performed at [facility] [place] [address] Dictating Physician: FUNMILAYO LINDSEY MD Electronically Signed by: FUNMILAYO LINDSEY MD Dic Date/Time: 04/04/24807 Sign date/Time: 04/04/24808 Jamie Nichols NP IMG BI PROCEDURES Final Result * (ABNORMAL) Lipid panel (03/01/2024) LDL/HDL Ratio 3 <=5 Triglycerides 163(A) <=150 mg/dL Cholesterol 275(A) <=200 mg/dL HDL 92 >=50 mg/dL LDL Cholesterol 153(A) <=100 mg/dL Blood Venous blood specimen / Unknown us Historical Provider LAB BLOOD ORDERABLES Marlin contreras Result * DXA BONE DENSITY STUDY 1+ SITS AXIAL SKEL (11/09/2021 1:56 PM EDT) Anatomical Region Laterality Modality Bone Densitometr y 07/13/2021 10:5 1 AM EST Narrative 11/10/2021 8:38 AM EDT BONE DENSITY SCAN (DEXA): FINDINGS: Lumbar Spine T-score is -1.2. (SD relative to 20-29 y/o adult) Z-score is 1.2. (SD relative to age matched peers) This is considered osteopenia by WHO criteria. Left Hip T-score is -2.0. Z-score is 0. This is considered osteopenia by WHO criteria. Comparison exam(s): 04/21/2012. 5.6% loss of bone mineral density in the left hip and 3.8% increase in bone mineral density in the lumbar spine, both statistically significant at the 95% confidence level. IMPRESSION: IMPRESSION: Osteopenia by WHO criteria. This patient has a 19% risk of major osteoporotic fracture and a 4.5% risk of hip fracture over the next 10 years. (World Health Organization Fracture Risk Assessment) The [facility] Department of Internal Medicine recommends using National Osteoporosis Foundation (NOF) guidelines in treatment decisions related to osteoporosis. NOF guidelines suggest considering treatment for postmenopausal women and men aged 50 or older presenting with the following: History of hip or vertebral fracture. T-score = -2.5 (DXA) at the femoral neck, total hip, or spine, after appropriate evaluation to exclude secondary causes. Low bone mass (T-score between -1.0 and -2.5 at the femoral neck or spine) AND a 10-year probability of a hip fracture = 3% OR a 10-year probability of a major osteoporosis-related fracture = 20% based on the [place]-adapted WHO algorithm Please note that all treatment decisions require clinical judgment and consideration of individual patient factors, including patient preferences, co-morbidities, previous drug use, risk factors not captured in the FRAX model (e.g., frailty, falls, vitamin D deficiency, increased bone turnover, interval significant decline in bone density) and possible under- or over-estimation of fracture risk by FRAX. Optional alternative screening schedule based on ricardo Hernández., [facility] [place] July 08, 2011 for patients with osteopenia (based on hip BMD T-score) is as follows: * advanced osteopenia (T scores -2.00 to -2.49), BMD testing every year * moderate osteopenia (T scores -1.50 to -1.99), BMD testing every 5 years mild osteopenia or normal BMD (T scores -1.50 and higher), BMD testing every 15 years Procedure Note Anjelica Guan MD - 07/25/2023 BONE DENSITY SCAN (DEXA): FINDINGS: Lumbar Spine T-score is -1.2. (SD relative to 20-29 y/o adult) Z-score is 1.2. (SD relative to age matched peers) This is considered osteopenia by WHO criteria. Left Hip T-score is -2.0. Z-score is 0. This is considered osteopenia by WHO criteria. Comparison exam(s): 04/21/2012. 5.6% loss of bone mineral density in theleft hip and 3.8% increase in bone mineral density in the lumbar spine, both statisticallysignificant at the 95% confidence level. IMPRESSION: IMPRESSION: Osteopenia by WHO criteria. This patient has a 19% risk of majorosteoporotic fracture and a 4.5% risk of hip fracture over the next 10 years. (World HealthOrganization Fracture Risk Assessment) [facility] Department of Internal Medicine recommendsusing National Osteoporosis Foundation (NOF) guidelines in treatment decisions related toosteoporosis. NOF guidelines suggest considering treatment for postmenopausal women and menaged 50 or older presenting with the following: History of hip or vertebral fracture. T-score = -2.5 (DXA) at the femoral neck, total hip, or spine, afterappropriate evaluation to exclude secondary causes. Low bone mass (T-score between -1.0 and -2.5 at the femoral neck or spine)AND a 10-year probability of a hip fracture = 3% OR a 10-year probability of a majorosteoporosis-related fracture = 20% based on the [place]-adapted WHO algorithm Please note that all treatment decisions require clinical judgment andconsideration of individual patient factors, including patient preferences, co- morbidities,previous drug use, risk factors not captured in the FRAX model (e.g., frailty, falls, vitaminD deficiency, increased bone turnover, interval significant decline in bone density) andpossible under- or over-estimation of fracture risk by FRAX. Optional alternative screening schedule based on ricardo Hernández., NEJMJanuary 2011 for patients with osteopenia (based on hip BMD T-score) is as follows: * advanced osteopenia (T scores -2.00 to -2.49), BMD testing every year * moderate osteopenia (T scores -1.50 to -1.99), BMD testing every 5years mild osteopenia or normal BMD (T scores -1.50 and higher), BMD testingevery 15 years Rosario Palacio MD IM DXA PROCEDURES Edited Resul t - Final * Colonoscopy (11/09/2017) Colonoscopy No Interpretation , Abstracted Anatomical Region Laterality Modality Other Historical Provider HEALTH MAINTENANCE Final Result from Last 3 Months or Most Recently Relevant to Health Maintenance Insurance * Guarantor: Farhad Burt Account Type Relation to Patient Date of Phone Billing Address Personal/Family Self 1945 [address] [place] [address] [facility] * Guarantor: ADELA Account Type Relation to Patient Date of Phone Billing [place] [address] [facility] Advance Directives Documents on File Type Date Recorded Patient Gem Cutter Expl anation Advance Directives and Living Will 07/23/2024 6:01 PM ADV DIR-Healthcare Proxy [email or web address] Advance Directives and Living Will 07/23/2024 6:01 PM ADV DIR-MOLST [id number] * Full Code - Default (Latest Code Status on File) Date Activated Date Inactivated Comments 08/13/2024 1:04 PM This is order is used when code status has not been discussed with the patient, or code status is otherwise unknown/unconfirmed To update the patient's code status, place a code status order. Do not modify or discontinue any currently active code status orders. Care Teams Barrel Maker Relationship Specialty Start Date End Date Jamie Nichols NP [address] [place] [address] PCP - General 04/25/24
--- OUTSIDE RECORDS SUMMARY | 2025-03-26 12:46 | XMS_ITS | Encounter Summary ---
Author Organization [facility] Address [address] [place] [address] Care Team Providers Care Hr Consultant Name Role Phone Mamie Leggett NP Primary Care Provider + Rosario Palacio MD Primary Care Provider Encounter Details Date Type Department Care Team (Late st Contact Info) Description 10/02/2020 Scanned Document [facility] Neurology [place] 35 [facility] 6 [place] [address] Yanet Powell, INVESTMENT PROFESSIONAL [address] [place] [address] Social History Tobacco Use Types Packs/Day Years Used Date Smoking Tobacco: Former Smokeless Tobacco: Never Comments:quit at 36 y/o Alcohol Use Standard Drinks/Week Comments Not Currently 0 (1 standard drink = 0.6 oz pur e alcohol) Comments Unknown Sex and Gender Information Value Date Recorded Sex Assigned at Not on file Legal Sex Female 8:26 AM EST Gender Identity Not on file Sexual Orientation Not on file COVID-19 Exposure Response Date Recorded In the last month, have you been in contact with someone who was confirmed or suspected to have Coronavirus / COVID-19? No / Unsure 09/24/2020 10:51 AM EDT documented as of this encounter Plan of Treatment Not on file documented as of this encounter Visit Diagnoses Not on filedocumented in this encounter Care Teams Hr Consultant Relationship Specialty Start Date End Date Mamie Leggett NP [address] [place] [address] PCP - General 08/14/20 03/09/23 Rosario Palacio MD [address] [place] [address] PCP - General Family Medicine 03/10/23 documented as of this encounter
--- OUTSIDE RECORDS SUMMARY | 2025-03-26 12:46 | XMS_ITS | Encounter Summary ---
Author Organization [facility] Address [address] [place] [address] Care Team Providers Care Position Clerk Name Role Phone Mamie Leggett NP Primary Care Provider + Rosario Palacio MD Primary Care Provider Encounter Details Date Type Department Care Team (Late st Contact Info) Description 08/14/2020 Scanned Document [facility] Neurology [address] [address] Naresh Gerardo MD IS [facility] [address] [address] Social History Tobacco Use Types Packs/Day Years Used Date Smoking Tobacco: Never Assessed Comments Unknown Sex and Gender Information Value Date Recorded Sex Assigned at Not on file Legal Sex Female 8:26 AM EST Gender Identity Not on file Sexual Orientation Not on file documented as of this encounter Plan of Treatment Not on file documented as of this encounter Visit Diagnoses Not on filedocumented in this encounter Care Teams Position Clerk Relationship Specialty Start Date End Date Mamie Leggett NP [address] [place] [address] PCP - General 08/14/20 03/09/23 Rosario Palacio MD [address] [place] [address] PCP - General Family Medicine 03/10/23 documented as of this encounter
--- OUTSIDE RECORDS SUMMARY | 2025-03-26 12:46 | XMS_ITS ---
Author Organization [facility] Care Team Providers Care Corporation Officer Name Role Phone Luke Webster Unavailable Unavailable Rey Winslow Unavailable Unavailable Delmi Caputo Unavailable Unavailable Farhan King Unavailable Unavailable Allergies and adverse reactions Code CodeSystem Substance Reaction Severity StartDate Concern Status 161413686 SNOMED CT Sulfa Antibiotics Mild 01/19/2024 active Care Team Name Role Address Phone Organization Dates Farhan King PCP [address] [facility] [address], [place], [address], [place] (Office): : [facility] 01/19/2024 - 02/04/2024 Luke Webster [address] [place] [address], [phone], [place] (Office): [facility] 01/19/2024 - 02/04/2024 Rey Winslow [address] [facility] [address], [place], [address], [place] (Office): : : [facility] 01/19/2024 - 02/04/2024 Delmi Caputo [address] [facility] [address], [place], [address], [place] (Office): : [facility] 01/19/2024 - 02/04/2024 Goals Section Goals Description Status Target Date [place] my code status wishes through next review Active 04/25/2024 I will be compliant with lab s & diagnostics if ordered by my doctor through the review date. Active 04/25/2024 I will be compliant with lab s & diagnostics if ordered by my doctor through the review date. Active 04/25/2024 I will be compliant with lab s & diagnostics if ordered by my doctor through the review date. Active 04/25/2024 I will be compliant with the non medication therapies, medication regimen & therapies prescribed by my doctor. I will be free of any discomfort or adverse side effects to therapies through the review date. Active 04/25/2024 I will be free from diarrhea and will have no dehydration through next review Active 04/25/2024 I will be free of falls through the review date. Active 04/25/2024 I will be free of major decl ine in ADL status through the review date. Active 04/25/2024 I will express satisfaction with the type of activities I am involved in when asked through the review date. Active 2023 I will verbalize adequate re lief of pain or ability to cope with incompletely relieved pain through the review date. Active Immunizations Immunization Status Vaccine Details Vaccine Code CodeSystem Demond e Notes TB 2 Step Mantoux Skin Test completed tuberculin skin test; unspecified formulation lotNumber: [id number] expiry: 11/17/2026 Mfg: [employer] PASTEUR LIMITED Given 0.1 ml Left Forearm intradermally Step 1 of Multi-step with next step required 98 CVX created date: 01/28/2024 consent date: 01/28/2024 administere d date: 01/28/2024 Mental Status Section Date Assessment Total Score Description 02/04/2024 BIMS 15 cognitively int act CAM 0 No delirium ind icated PHQ-9 00 01/21/2024 BIMS 14 cognitively int act CAM 0 No delirium ind icated PHQ-9 00 Insurance Providers Plan of Treatment Section Interventions Intervention Code Code System Display Name Proposed D ate Problems Problem # Description Date of onset Resolved Date Code CodeSystem Concern Status 1 ADULT FAILURE TO THRIVE 01/19/2024 R62.7 ICD-10-CM active 2 ESSENTIAL TREMOR 01/19/2024 G25.0 ICD-10-CM ac tive 3 INSOMNIA, UNSPECIFIED 01/19/2024 G47.00 ICD-10-CM active 4 OTHER ABNORMALITIES OF GAIT AND MOBILITY 01/19/2024 R26.89 ICD-10-CM active 5 OTHER LACK OF COORDINATION 01/19/2024 R27.8 ICD-10-CM active 6 ULCERATIVE COLITIS, UNSPECIFIED WITH RECTAL BLEEDING 01/19/2024 K51.911 ICD-10-CM active 7 UNSTEADINESS ON FEET 01/19/2024 R26.81 ICD-10-CM active 8 URINARY TRACT INFECTION, SITE NOT SPECIFIED 01/19/2024 N39.0 ICD-10-CM active Reason for Referral No Reasons for Referral Entered Social History Social History Observation Description Start Date End Date Code Code System Current Smoking Status Tobacco smoking consumption unknown 691914408 SNOMED CT Sex Assigned At Female 1945 [address] [facility] Gender Identity Sexual Orientation Vital Signs Code Code System Vitals Name Values and Units Timing Information 18472-6 LOINC Weight Zdjvs=379.4 Units=Lbs 8462-4 LOINC Blood Pressure-Diastolic Value=78 Un its=mmHg 02/03/2024 8480-6 LOINC Blood Pressure-Systolic Kbbom=492 Un its=mmHg 02/03/2024 8310-5 INC Body Temperature Value=97.7 Units= F 02/03/2024 8867-4 LOINC Heart rate Value=73.0 Units=/min 20538-4 INC O2 % BldC Oximetry Value=94.0 Units= % 02/03/2024 97200-6 LOINC Pain Level Value=0.0 02/03/2024 9279-1 LOINC Respiratory Rate Value=18.0 Units=/m in 02/01/2024 2339-0 LOINC Blood Sugar Value=75.0 Units=mg/dL 02/01/2024 8302-2 LOINC Height Value=64.0 Units=Inches 01/19/2024
--- OUTSIDE RECORDS SUMMARY | 2025-03-26 12:46 | XMS_ITS | Encounter Summary ---
Author Organization [facility] Address [address] [place] [address] Care Team Providers Care Top Edge Beveler Name Role Phone Jamie Lugo NP Primary Care Provider [phone] Encounter Details Date Type Department Care Team (Late st Contact Info) Description 07/20/2024 Lab Requisition [facility] - Main Lab [address] [place] [phone] Jamie Lugo NP [address] [address] Essential (primary) hypertension Social History Tobacco Use [...] PACE Home Care / PACE Home Visit [facility] In Home Nursing and Aide Services [address] [place] [address] Chuyita Jerry 03/29/2025 Lab [facility] [place] [facility] [address] [place] [address] Jamie Lugo, TENZIN [address] [facility] 1 [place] [address] Urinary urgency; Urinary frequency 04/03/2025 12:30 PM EDT PACE Home Care / PACE Home Visit [facility] [place] [facility] [address] [place] [address] Chuyita Jerry 04/10/2025 12:30 PM EDT PACE Home Care / PACE Home Visit [facility] [place] [facility] [address] [place] [address] Chuyita Jerry 04/17/2025 2:30 PM EDT PACE Home Care / P[facility] Home Visit [facility] [place] [facility] [address] [place] [phone] Karen Myrick 04/24/2025 12:30 PM EST P[facility] Home Care / PACE Home Visit [facility] [place] [facility] [address] [place] [phone] Chuyita Jerry 05/01/2025 12:30 PM EST P[facility] Home Care / PACE Home Visit [facility] [place] [facility] [address] [place] [phone] Chuyita Jerry 05/02/2025 1:30 PM EST Clinical Support [facility] [place] [address] [place] [address] 05/08/2025 3:30 PM EST Ancillary Procedure [facility] 101 [address] [facility] 101 [place] [address] 05/09/2025 11:00 AM EST Clinical Support [facility] [place] [address] [place] [address] 05/15/2025 12:30 PM EST PACE Home Care / P[facility] Home Visit [facility] [place] [facility] 200 [facility] [address] Chuyita Jerry 05/21/2025 3:00 PM EST Clinical Support [facility] [place] 200 [facility] [address] 05/22/2025 12:30 PM EST PACE Home Care / P[facility] Home Visit [facility] [place] [facility] 200 [facility] [address] Chuyita Jerry 07/26/2025 12:45 PM EST Clinical Support [facility] [address] 09/02/2025 1:00 PM EDT Clinical Support [facility] [place] [address] documented as of this encounter Procedures Procedure [...] CBC auto differential (07/20/2024 11:27 AM EST) WBC 5.8 4.8 - 10.8 K/mcL LAB HEMETOLOGY METHOD 07/20/2024 2:28 PM EST [facility] RBC 4.20 3.80 - 4.80 M/mcL LAB HEMETOLOGY METHOD 07/20/2024 2:28 PM EST [facility] Hemoglobin 13.8 11.5 - 16.0 g/dL LAB HEMETOLOGY METHOD 07/20/2024 2:28 PM [facility] Hematocrit 42.6 35.0 - 47.0 % LAB HEMETOLOGY METHOD 07/20/2024 2:28 PM [facility] MCV 100.5(H) 79.0 - 98.0 FL LAB HEMETOLOGY METHOD 07/20/2024 2:28 PM [facility] MCH 32.5(H) 27.0 - 32.0 pcg LAB HEMETOLOGY METHOD 07/20/2024 2:28 PM [facility] MCHC 32.4 32.0 - 37.0 g/dL LAB HEMETOLOGY METHOD 07/20/2024 2:28 PM [facility] RDW 14.8 11.0 - 15.0 % LAB HEMETOLOGY METHOD 07/20/2024 2:28 PM [facility] Platelets 288 130 - 400 K/mcL LAB HEMETOLOGY METHOD 07/20/2024 2:28 PM [facility] MPV 11.4(H) 7.0 - 11.0 FL LAB HEMETOLOGY METHOD 07/20/2024 2:28 PM [facility] NRBC 0.0 <1.0 % LAB HEMETOLOGY METHOD 07/20/2024 2:28 PM [facility] NRBC Absolute 0.00 <0.10 K/mcL LAB HEMETOLOGY METHOD 07/20/2024 2:28 PM [facility] Neutrophils Relative 57.8 % LAB HEMETOLOGY METHOD 07/20/2024 2:28 PM [facility] Lymphocytes Relative 19.9 % LAB HEMETOLOGY METHOD 07/20/2024 2:28 PM [facility] Monocytes Relative 15.8 % LAB HEMETOLOGY METHOD 07/20/2024 2:28 PM [facility] Eosinophils Relative 5.2 % LAB HEMETOLOGY METHOD 07/20/2024 2:28 PM EST [facility] Basophils Relative 1.0 % LAB HEMETOLOGY METHOD 07/20/2024 2:28 PM [facility] Immature Granulocytes Relative 0.3 % LAB HEMETOLOGY METHOD 07/20/2024 2:28 PM [facility] Neutrophils Absolute 3.33 1.50 - 7.00 K/mcL LAB HEMETOLOGY METHOD 07/20/2024 2:28 PM EST [facility] Lymphocytes Absolute 1.15 1.00 - 5.00 K/mcL LAB HEMETOLOGY METHOD 07/20/2024 2:28 PM [facility] Monocytes Absolute 0.91 0.20 - 1.00 K/mcL LAB HEMETOLOGY METHOD 07/20/2024 2:28 PM [facility] Eosinophils Absolute 0.30 0.00 - 0.50 K/mcL LAB HEMETOLOGY METHOD 07/20/2024 2:28 PM EST [facility] Basophils Absolute 0.06 0.00 - 0.20 K/mcL LAB HEMETOLOGY METHOD 07/20/2024 2:28 PM EST [facility] Immature Granulocytes Absolute 0.02 0.00 - 0.03 K/mcL LAB HEMETOLOGY METHOD 07/20/2024 2:28 PM [facility] Blood Venous blood specimen / Unknown 07/20/2024 11:27 AM EST 07/20/2024 1:56 PM EST us Jamie Lugo BUSINESS PROCESS MODELER LAB BLOOD ORDERABLES Final Resul t [facility]) [facility] [address] [place] [address], * Comprehensive metabolic panel (07/20/2024 11:27 AM EST) Sodium 137 133 - 145 mmol/L LAB CHEMISTRY METHOD 07/20/2024 2:28 PM [facility] Potassium 4.3 3.5 - 5.5 mmol/L LAB CHEMISTRY METHOD 07/20/2024 2:28 PM [facility] Chloride 104 96 - 110 mmol/L LAB CHEMISTRY METHOD 07/20/2024 2:28 PM [facility] CO2 30 21 - 32 mmol/L LAB CHEMISTRY METHOD 07/20/2024 2:28 PM [facility] Anion Gap 3 3 - 11 LAB CHEMISTRY METHOD 07/20/2024 2:28 PM [facility] Glucose 94 70 - 100 mg/dL LAB CHEMISTRY METHOD 07/20/2024 2:28 PM [facility] BUN 14 5 - 25 mg/dL LAB CHEMISTRY METHOD 07/20/2024 2:28 PM [facility] Creatinine 0.71 0.50 - 1.10 mg/dL LAB CHEMISTRY METHOD 07/20/2024 2:28 PM [facility] eGFR 88 >=60 mL/min/1. 73m2 LAB CHEMISTRY METHOD 07/20/2024 2:28 PM [facility] Comment:Calculation based on the Chronic Kidney Disease Epidemiology Collaboration (CKD-EPI) equation refit without adjustment for race. BUN/Creatinine Ratio 19.7 LAB CHEMISTRY METHOD 07/20/2024 2:28 PM [facility] Calcium 9.7 8.5 - 10.5 mg/dL LAB CHEMISTRY METHOD 07/20/2024 2:28 PM [facility] AST (SGOT) 26 10 - 42 unit/L LAB CHEMISTRY METHOD 07/20/2024 2:28 PM [facility] ALT (SGPT) 20 10 - 60 unit/L LAB CHEMISTRY METHOD 07/20/2024 2:28 PM [facility] Alkaline Phosphatase 95 42 - 121 unit/L LAB CHEMISTRY METHOD 07/20/2024 2:28 PM [facility] Total Protein 7.3 6.0 - 8.0 g/dL LAB CHEMISTRY METHOD 07/20/2024 2:28 PM EST [facility] Albumin 3.7 3.2 - 5.0 g/dL LAB CHEMISTRY METHOD 07/20/2024 2:28 PM EST [facility] Total Bilirubin 0.5 0.0 - 1.4 mg/dL LAB CHEMISTRY METHOD 07/20/2024 2:28 PM EST [facility] Blood Venous blood specimen / Unknown 07/20/2024 11:27 AM EST 07/20/2024 1:56 PM EST us Jamie Lugo NP LAB BLOOD ORDERABLES Final Resul t Performing Organization Address City/[facility]/ZIP Co de Phone Number [facility] [address] [place] [address], [place] [phone] * B-type natriuretic peptide (07/20/2024 11:27 AM EST) BNP 75 <=100 pcg/mL LAB CHEMISTRY METHOD 07/20/2024 2:49 PM EST [facility] Blood Venous blood specimen / Unknown 07/20/2024 11:27 AM EST 07/20/2024 1:56 PM EST us Jamie Lugo NP LAB BLOOD ORDERABLES Final Resul t Performing Organization Address City/[facility]/ZIP Co de Phone Number [facility] [address] [place] [address], [place] [phone] documented in this encounter Visit Diagnoses Diagnosis Essential (primary) hypertension Unspecified essential hypertension Urinary urgency Urgency of urination Urinary frequency documented in this encounter Care Teams Top Edge Beveler Relationship Specialty Start Date End Date Jamie Lugo NP [address] [place] [address] PCP - General 04/25/24 documented as of this encounter
--- OUTSIDE RECORDS SUMMARY | 2025-03-26 12:46 | XMS_ITS | Encounter Summary ---
Author Organization [facility] Address [address] [place] [address] Care Team Providers Care Glass Wool Blanket Machine Feeder Name Role Phone Mamie Leggett NP Primary Care Provider + Rosario Palacio MD Primary Care Provider Encounter Details Date Type Department Care Team (Late st Contact Info) Description 10/13/2020 Scanned Document [facility] Neurology [place] 35 [facility] 6 [place] [phone] Yanet Powell, COMPLAINT EVALUATION OFFICER [address] [place] [address] Social History Tobacco Use Types Packs/Day Years [...] on filedocumented in this encounter Care Teams Glass Wool Blanket Machine Feeder Relationship Specialty Start Date End Date Mamie Leggett NP [address] [place] [address] PCP - General 08/14/20 03/09/23 Rosario Palacio MD [address] [facility] [address] PCP - General Family Medicine 03/10/23 documented as of this encounter
--- OUTSIDE RECORDS SUMMARY | 2025-03-26 12:46 | XMS_ITS | Encounter Summary ---
Author Organization [facility] Address [address] [place] [address] Care Team Providers Care Director Of Business Applications Name Role Phone Jamie Lugo NP Primary Care Provider [phone] Reason for Visit * Reason Onset Date Comments Black or Bloody Stool 11/20/2024 Message fr om our RN, Taylor Mathews at 4:51pm: She had called clinic earlier and was waiting to speak to Jamie. I did call her back when she text me she was having bloody stools . I triaged her. She had bloody stools this am , none this afternoon. She admitted she wasn't drinking enough. Guess Jamie was going to rx prednisone which I would have brought to her tomorrow am . Tried to call Myranda twice. Left VM asking how she was doing, and to call our main number. Encounter Details Date Type Department Care Team (Late st Contact Info) Description 11/20/2024 PACE On-Call [facility] Clinic [address] [place] [address] Karla Ghotra MD [address] [id number] Social History Tobacco Use Types Packs/Day Years [...] [place] In [facility] [address] [place] [phone] Chuyita Jerry 03/29/2025 Lab [facility] [place] [facility] [address] [place] [phone] Jamie Lugo, TENZIN [address] [address] Urinary urgency; Urinary frequency 04/03/2025 12:30 PM EDT PACE Home Care / P[facility] Home Visit [facility] [place] [facility] [address] [place] [phone] Chuyita Jerry 04/10/2025 12:30 PM EDT PACE Home Care / P[facility] Home Visit [facility] [place] [facility] [address] [place] [phone] Chuyita Jerry 04/17/2025 2:30 PM EDT PACE Home Care / PACE Home Visit [facility] [place] [facility] Services [address] [place] [phone] Karen Myrick 04/24/2025 12:30 PM EST PACE Home Care / P[facility] Home Visit [facility] [place] [facility] [address] [place] [phone] Chuyita Jerry 05/01/2025 12:30 PM EST PACE Home Care / P[facility] Home Visit [facility] [place] [facility] [address] [place] [phone] Chuyita Jerry 05/02/2025 1:30 PM EST Clinical Support [facility] [place] [address] [place] [phone] 05/08/2025 3:30 PM EST Ancillary Procedure [facility] [address] [place] [address] 05/09/2025 11:00 AM EST Clinical Support [facility] [place] [address] [place] [address] 05/15/2025 12:30 PM EST PACE Home Care / PACE Home Visit [facility] [place] In [facility] Services [address] [place] [address] Chuyita Jerry 05/21/2025 3:00 PM EST Clinical Support [facility] [place] [address] [place] [phone] 05/22/2025 12:30 PM EST PACE Home Care / PACE Home Visit [facility] [place] [facility] [address] [place] [phone] Chuyita Jerry 07/26/2025 12:45 PM EST Clinical Support [facility] [place] [address] [place] [phone] 09/02/2025 1:00 PM EDT Clinical Support [facility] [place] [address] [place] [phone] documented as of this encounter Visit Diagnoses Not on filedocumented in this encounter Care Teams Director Of Business Applications Relationship Specialty Start Date End Date Jamie Lugo NP [address] [place] [address] PCP - General 04/25/24 documented as of this encounter
--- OUTSIDE RECORDS SUMMARY | 2025-03-26 12:46 | XMS_ITS | Clinical Summary ---
Author Organization [facility] Address [address] [place] [address] Care Team Providers Care Biomedical Repair Technician Name Role Phone Rocky De Souza MD Primary Care Provider [phone] Allergies Active Allergy Reactions Criticality Noted Date [...] age to complete this topic Care Teams Biomedical Repair Technician Relationship Specialty Start Date End Date Rocky De Souza MD PCP - General Rheumatology 03/30/24
--- OUTSIDE RECORDS SUMMARY | 2025-03-26 12:46 | XMS_ITS | Encounter Summary ---
Author Organization [facility] Address [address] [place] [address] Care Team Providers Care Web Marketing Coordinator Name Role Phone Jamie Lugo NP Primary Care Provider [phone] Encounter Details Date Type Department Care Team (Late st Contact Info) Description 03/22/2025 Lab [facility] [place] [facility] [address] [place] [phone] Jamie Lugo NP [address] [address] Urinary urgency; Urinary frequency Social History Tobacco Use Types Packs/Day Years [...] In Home Nursing and A[facility] Services [address] [place] [phone] Chuiyta Jerry 03/29/2025 Lab [facility] [place] [facility] [address] [place] [phone] Jamie Lugo NP 21[address] [facility] 1 [place] [address] Urinary urgency; Urinary frequency 04/03/2025 12:30 PM EDT [facility] / [facility] Home Visit [facility] [place] [facility] [address] [place] [phone] Chuyita Jerry 04/10/2025 12:30 PM EDT [facility] / [facility] Home Visit V[facility] LEGER [place] [facility] [address] [place] [phone] Chuyita Jerry 04/17/2025 2:30 PM EDT [facility] / [facility] Home Visit Vianey LEGER [place] [facility] [address] [place] [phone] Karen Myrick 04/24/2025 12:30 PM EST [facility] / [facility] Home Visit V[facility] LEGER [place] [facility] [address] [place] [phone] Chuyita Jerry 05/01/2025 12:30 PM EST [facility] / [facility] Home Visit [facility] [place] [facility] [address] [place] [phone] Chuyita Jerry 05/02/2025 1:30 PM EST Clinical Support Vianey LEGER MA [address] [place] [phone] 05/08/2025 3:30 PM EST Ancillary Procedure [facility] [place] [facility] [address] [facility] [address] [place] [address] 05/09/2025 11:00 AM EST Clinical Support Vianey LEGER MA [address] [place] [phone] 05/15/2025 12:30 PM EST [facility] Home [facility] / P[facility] Home Visit Vianey LEGER [place] [facility] [address] [place] [phone] Chuyita Jerry 05/21/2025 3:00 PM EST Clinical Support Vianey LEGER MA [address] [place] [phone] 05/22/2025 12:30 PM EST [facility] / PACE Home Visit Vianey LEGER [place] [facility] [address] [place] [phone] Chuyita Jerry 07/26/2025 12:45 PM EST Clinical Support Vianey LEGER MA [address] [place] [phone] 09/02/2025 1:00 PM EDT Clinical Support Vianey LEGER MA [address] [place] [phone] documented as of this encounter Visit Diagnoses Diagnosis Urinary urgency Urgency of urination Urinary frequency Urinary urgency Urgency of urination Urinary frequency documented in this encounter Orders [facility] Service Orderables Count Last Ordered Date First Ordered Date [facility] 1 03/22/2025 documented in this encounter Care Teams Web Marketing Coordinator Relationship Specialty Start Date End Date Jamie Lugo NP [address] [place] [address] PCP - General 04/25/24 documented as of this encounter
--- OUTSIDE RECORDS SUMMARY | 2025-03-26 12:46 | XMS_ITS | Encounter Summary ---
Author Organization [facility] Address [address] [place] [address] Care Team Providers Care Can Closing Machine Operator Name Role Phone Jamie Lugo NP Primary Care Provider [phone] Reason for Visit * Reason Onset Date Comments Medication 11/20/2024 Par called inqui ring about the medication Prednisone that was ordered this date by Jamie LONDON. It was noted medication was ordered and to be CPN'ed by local [facility]. Information given to participant. Encounter Details Date Type Department Care Team ([facility] st Contact Info) Description 11/20/2024 [facility] On-Call [facility] [address] [place] [address] Jamie Lugo NP [address] [address] Social History Tobacco Use Types Packs/Day Years [...] [place] In [facility] [address] [place] [phone] Chuyita Jerry 03/29/2025 Lab [facility] [place] [facility] [address] [place] [phone] Jamie Lugo, TENZIN [address] [address] Urinary urgency; Urinary frequency 04/03/2025 12:30 PM EDT P[facility] Home Care / P[facility] Home Visit Vianey LEGER [place] [facility] [address] [place] [phone] Chuyita Jerry 04/10/2025 12:30 PM EDT [facility] / P[facility] Home Visit Vianey LEGER [place] [facility] [address] [place] [phone] Chuyita Jerry 04/17/2025 2:30 PM EDT [facility] Home [facility] / PACE Home Visit Vianey LEGER [place] [facility] [address] [place] [phone] Karen Myrick 04/24/2025 12:30 PM EST [facility] / P[facility] Home Visit Vianey LEGER [place] [facility] [address] [place] [phone] Chuyita Jerry 05/01/2025 12:30 PM EST [facility] Home [facility] / P[facility] Home Visit Vianey LEGER [place] [facility] [address] [place] [phone] Chuyita Jerry 05/02/2025 1:30 PM EST Clinical Support Vianey LEGER MA [address] [place] [phone] 05/08/2025 3:30 PM EST Ancillary Procedure [facility] [address] [place] [address] 05/09/2025 11:00 AM EST Clinical Support Vianey LEGER [place] [address] [place] [phone] 05/15/2025 12:30 PM EST [facility] Home [facility] / PACE Home Visit Vianey LEGER [place] [facility] [address] [place] [phone] Chuyita Jerry 05/21/2025 3:00 PM EST Clinical Support Vianey LEGER MA [address] [place] [phone] 05/22/2025 12:30 PM EST [facility] Home [facility] / P[facility] Home Visit Vianey LEGER [place] [facility] [address] [place] [phone] Chuyita Jerry 07/26/2025 12:45 PM EST Clinical Support Vianey LEGER MA [address] [place] [phone] 09/02/2025 1:00 PM EDT Clinical Support Vianey LEGER MA [address] [place] [phone] documented as of this encounter Visit Diagnoses Not on filedocumented in this encounter Care Teams Can Closing Machine Operator Relationship Specialty Start Date End Date Jamie Lugo NP [address] [place] [address] PCP - General 04/25/24 documented as of this encounter
--- OUTSIDE RECORDS SUMMARY | 2025-03-26 12:46 | XMS_ITS | Encounter Summary ---
Author Organization [facility] Address [address] [place] [address] Care Team Providers Care Small Products Ii Assembler Name Role Phone Rosario Palacio MD Primary Care Provider Reason for Visit * Reason Comments Medication Refill Encounter Details Date Type Department Care Team (Late st Contact Info) Description 04/15/2023 Refill [facility] [address] [place] [phone] Cortney Kaur, LABORER CHEESEMAKING [address] [facility] [address] [place] [address] Parkinson's disease with dyskinesia and fluctuating manifestations Social History Tobacco Use Types Packs/Day Years [...] as of this encounter Visit Diagnoses Diagnosis Parkinson's disease with dyskinesia and fluctuating manifestations (HCC) documented in this encounter Care Teams Small Products Ii Assembler Relationship Specialty Start Date End Date Rosario Palacio MD [address] [place] [address] PCP - General Family Medicine 03/10/23 documented as of this encounter
--- OUTSIDE RECORDS SUMMARY | 2025-03-26 12:46 | XMS_ITS ---
Author Organization [facility] [address] [facility] Address [address] [place] [address] Phone Care Team Providers Care Reference Investigator Name Role Phone Jamie Lugo NP Primary Care Provider [phone] Program of [facility] Elder[facility] Status:Enrolled (Active) Start date:02/19/2024 Enrollment date:02/19/2024 Related social drivers of health:Housing Instability, Financial Risk, Transportation, Social Isolation, Food Risk Related service episodes:[facility] (Active) Overview This episode will track PACE documentation. Case Team Name Relationship Phone Jamie Lugo MICROBIOLOGY SUPERVISOR Nurse Practitioner [phone] Teresita Greene Recreational Therapist Rachel Blake RN Sample Finisher Cynthia Borden RN Sample Finisher Lorena Cline STIFF LEG OPERATOR Kitchen Worker Shan Hua OT Occupational Therapist Antonio Mendoza RN Registered Nurse Nandini Black RD Dietitian Keith Boogie PT Physical Therapist Gavin Gutierres [facility] Physiotherapist Karri Worley [facility] Advertising Agent Linda Barry RN Sample Finisher Chantel Bowers RN Registered Nurse Sruthi Jernigan Advertising Agent Annette Maria [facility] Advertising Agent Sidney Ortiz Spiritual Care Inocencia Dowling PT Physical Therapist Neisha Kyle OT Occupational Therapist Patricia Celis HOTEL FRONT DESK AGENT Advertising Agent Aris Chatterjee PT Physical Therapist Karla Ghotra MD Primary Care Provider Continued Care and Services Coordination
== END 2025-03-26 11:08 | disposition home or self-care (01) ==
LOC: HO.HSMS 10:31
PROVIDERS: PCP Family Medicine; Visit Provider Psychiatry & Neurology Neurology
DX: G20.A1 Parkinson's disease without dyskinesia, without mention of fluctuations (principal); G47.9 Sleep disorder, unspecified; G25.0 Essential tremor; G25.2 Other specified forms of tremor
CPT/HCPCS: 99214; G2211

== ENCOUNTER → 2025-03-26 10:31 | Outpatient (BNVA) | payer OTHER, SELFPAY | PROVIDERS: PCP Family Medicine; Visit Provider Psychiatry & Neurology Neurology | DX: G20.A1 Parkinson's disease without dyskinesia, without mention of fluctuations (principal); G47.9 Sleep disorder, unspecified; G25.0 Essential tremor; G25.2 Other specified forms of tremor | CPT/HCPCS: 99212 ==